=== PATIENT | male | born 1995 | race Caucasian/White ===

== ENCOUNTER 2019-05-18 01:55 | Emergency (ER) | payer SELFPAY ==
[2019-05-18 01:59] VITALS: BP 127/81; PULSE 56; RESP 16; TEMP 36.2; O2SAT 99
--- NOTE | 2019-05-18 02:09 | ED.NAVMDI ---
HPI - Nausea/Vomiting/Diarrhea General Chief complaint: Nausea/Vomiting/Diarrhea Stated complaint: n/v Time Seen by Provider: 05/18/19 02:09 Source: patient and RN notes reviewed Mode of arrival: ambulatory Limitations: no limitations History of Present Illness HPI Narrative: Pt is a 23 y/o male who presents to the ED with c/o nausea and vomiting starting 3 hours ago. He notes that he had one episode of diarrhea earlier yesterday morning. Pt states that he then developed severe nausea and vomiting 3 hours ago, noting that he has been unable to keep anything down due to his symptoms. He also reports a headache, chills, shakiness, lightheadedness, and intermittent SOB, but denies any cough or sinus congestion. MD elicited complaint: nausea and vomiting Onset (ago): hour(s) (3) Associated symptoms: fever/chills (chills), headaches, shortness of breath and other (shakiness; lightheadedness; diarrhea (resolved)) Related Data Allergies Allergy/AdvReac Type Severity Reaction Status Date / Time No Known Allergies Allergy Unknown Verified 05/18/19 02:29 Review of Systems Review of Systems: All systems reviewed & are unremarkable except as noted in HPI and below Constitutional: Constitutional: Reports chills, Reports headache(s) and Reports other (shakiness) ENT: Denies nasal congestion Respiratory: Respiratory: Denies cough and Reports dyspnea Gastrointestinal: Gastrointestinal: Reports diarrhea (resolved), Reports nausea and Reports vomiting Neurologic: Reports other (lightheadedness) PMFSH Past Medical History Medical History (Updated 05/18/19 @ 05:28 by Nate Flores MD) Healthy adult male Surgical History Surgical History No significant past surgical history Social History Social History Smoking packs per day: 0.5 Smoking cigarettes per day: 10.0 Smoking status: Current every day smoker Exam Narrative: Exam Narrative: Const: General: healthy appearing and no acute distress Nutritional Appearance: well nourished Resp: Effort & Inspection: normal respiratory effort Auscultation: clear to auscultation bilaterally Cardio: Rate: regular rate Rhythm: regular rhythm Heart sounds: no murmurs GI: GI Palp: No abdominal tenderness and Yes Soft to palpation Auscultation: normal bowel sounds Back/Spine/Pelvis: Back: other (Full ROM) Skin: General skin exam: normal color, dry skin and other (warm) Neuro: General: patient oriented x3 (alert) Speech: normal speech Extrem: General: full ROM Psych: Mental Status: mental status grossly normal Affect: normal affect Course Vital Signs Vital signs: Vital Signs Temperature 36.2 C L 05/18/19 01:59 Pulse Rate 56 L 05/18/19 01:59 Respiratory Rate 16 05/18/19 01:59 Blood Pressure 127/81 05/18/19 01:59 Pulse Oximetry 99 05/18/19 01:59 Temperature 36.2 C L 05/18/19 01:59 Pulse Rate 51 L 05/18/19 05:45 Respiratory Rate 14 05/18/19 05:45 Blood Pressure 107/50 L 05/18/19 05:45 Pulse Oximetry 98 05/18/19 05:45 MDM - Nausea/Vomiting/Diarrhea Lab Data Result diagrams: 05/18/19 02:38 05/18/19 02:38 Labs: Lab Results 05/18/19 05/18/19 Range/Units 02:38 02:38 WBC 9.8 (4.5-10.0) K/mm3 RBC 4.84 (4.6-6.20) M/mm3 Hgb 13.5 L (14.0-18.0) g/dL Hct 41.0 L (42.0-52.0) % MCV 84.7 (80-100) fl MCH 27.9 (26-34) pg MCHC 32.9 (32-36) g/dl RDW 12.5 (11.5-14.5) % Plt Count 242 (150-375) k/mm3 MPV 10.9 H (7.4-10.4) fl Immature Gran % (Auto) 0.2 (0-0.5) % Neut % (Auto) 64.2 (45.5-73.1) % Lymph % (Auto) 29.5 (18.3-44.2) % [place] % (Auto) 4.7 (2.6-8.5) % Eos % (Auto) 1.1 (0-4.4) % Baso % (Auto) 0.3 (0.2-1.2) % Lymph # (Auto) 2.90 (0.9-3.2) K/mm3 [place] # (Auto) 0.5 (0.1-0.6) K/mm3 Eos # (Auto) 0.1 (0-0.3) K/mm3 Baso # (Auto) 0.0 (0.
[2019-05-18 02:26] VITALS: BP 125/70; PULSE 47; RESP 20; O2SAT 98
[2019-05-18] MEDS: SODIUM CHLORIDE 0.9% IV 1,000 ML 999 ML IV CONT (02:37)
[2019-05-18] MEDS: ONDANSETRON INJ 4 MG/2 ML VIAL IV PUSH (02:37)
[2019-05-18 02:51] LABS: Basophils Percent Auto 0.3 % (0.2-1.2); Eosinophils Absolute Auto 0.1 K/mm3 (0-0.3); Eosinophils Percent Auto 1.1 % (0-4.4); Hemoglobin 13.5 g/dL (14.0-18.0); Immature Granulocyte Absolute 0.02 K/mm3 (0.00-0.031); Immature Granulocyte Percent A 0.2 % (0-0.5); Lymphocytes Percent Auto 29.5 % (18.3-44.2); Mean Corpuscular HGB Conc 32.9 g/dl (32-36); Mean Corpuscular Hemoglobin 27.9 pg (26-34); Mean Corpuscular Volume 84.7 fl (80-100); Mean Platelet Volume 10.9 fl (7.4-10.4); Monocytes Absolute Auto 0.5 K/mm3 (0.1-0.6); Monocytes Percent Auto 4.7 % (2.6-8.5); Neutrophils Absolute Auto 6.3 K/mm3 (1.3-6.7); Neutrophils Percent Auto 64.2 % (45.5-73.1); Platelet Count Result 242 k/mm3 (150-375); Red Blood Count 4.84 M/mm3 (4.6-6.20); Red Cell Distribution Width 12.5 % (11.5-14.5); White Blood Count 9.8 K/mm3 (4.5-10.0)
[2019-05-18 02:59] LABS: Alanine Aminotransferase 22 U/L (4-50); Albumin Level 4.6 g/dL (3.5-5.1); Alkaline Phosphatase 33 U/L (38-126); Aspartate Amino Transferase 24 U/L (17-59); Bilirubin,Total 0.4 mg/dL (0.2-1.3); Blood Urea Nitrogen 11 mg/dL (9-20); Calcium 9.7 mg/dL (8.4-10.2); Carbon Dioxide 29 mmol/L (22-30); Chloride 101 mmol/L (98-107); Estimated CRCL calculation 148 ml/min; Estimated Glomerular Filt Rate > 60; Glucose 104 mg/dL (75-110); Lipase 41 U/L (23-300); Potassium 4.1 mmol/L (3.4-5.0); Sodium 140 mmol/L (137-145)
[2019-05-18 03:23] VITALS: BP 109/64; PULSE 50; RESP 18; O2SAT 97
[2019-05-18] MEDS: METOCLOPRAMIDE HCL INJ 10 MG/2 ML VIAL IV PUSH (03:25)
[2019-05-18 05:45] VITALS: BP 107/50; PULSE 51; RESP 14; O2SAT 98
== END 2019-05-18 05:47 | disposition home or self-care (01) ==
PROVIDERS: Emergency Provider Emergency Medicine
DX: K52.9 Noninfective gastroenteritis and colitis, unspecified (principal); F17.210 Nicotine dependence, cigarettes, uncomplicated
CPT/HCPCS: 36415; 80053; 83690; 85025; 96361; 96374; 96375; 99284; J2405; J2765; J7030

== ENCOUNTER 2020-08-01 03:28 | Emergency (ER) | payer OTHER, SELFPAY ==
--- NOTE | ~2020-08-01 | CT_ITS ---
EXAMINATION: CT brain wo con DATE: 08/01/2020 05:36 INDICATION: Dizziness. Fall. TECHNIQUE: Computed tomography (CT) of the head was performed without intravenous contrast. The mA wa s adjusted according to patient size. Iterative reconstruction technique was employed. Exam dose: 60 5.33 mGy-cm total exam DLP. COMPARISON: None FINDINGS: No intracranial mass lesion or hemorrhage, midline shift or mass effect. No cerebrovascular accident. Normal sellers-white matter differentiation. Normal ventricular size. No subdural or epidural hematoma. No fracture or bone destruction of the cranial vault. There is some soft tissue thickening of the ethmoid air cell septae but the included paranasal sinuse s and the mastoid air cells are otherwise unremarkable. IMPRESSION: No intracranial abnormality Reviewed, dictated and finalized at [facility] Reviewed, dictated and finalized at [facility]. IMPRESSION: No intracranial abnormality
[2020-08-01 03:33] VITALS: BP 131/75; PULSE 71; RESP 16; TEMP 36.4; O2SAT 100
--- NOTE | 2020-08-01 04:55 | PC.NURSE ---
Pt reports fell down 5 stairs approx. 3 days ago and since then c/o dizziness and rivas's. unable to recall if he hit head or lost consciousness. pt reports 1/2 PPD and marijuana smoker. reports he is bipolar and used to take depakote 500 mg PO bid but has not taken it in approx. 1 month. stopped cold turkey b/c it was making me drowsy . reports dizzy at present. a/ox 4. speech clear. on cell phone during initial triage without difficulty noted. 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
[2020-08-01 04:57] VITALS: BP 128/79; PULSE 62; RESP 14; O2SAT 100
--- NOTE | 2020-08-01 05:40 | ED.HEATRA ---
HPI - Head Injury General Chief complaint: Head Injury Stated complaint: fell down stairs-near syncope, dizzy Time Seen by Provider: 08/01/20 05:00 Source: patient Mode of arrival: ambulatory Limitations: no limitations History of Present Illness HPI Narrative: This is a 25 year old male who presents for evaluation of a possible head injury. He states on Friday he accidentally slipped down 5-6 wooden steps outside of his apartment. He states he is unsure if he hit his head, but he has had headaches and dizziness since his fall. He reports nausea but no vomiting. HE denies neck pain, chest pain, abdominal pain or extremity pain. He has been taken ibuprofen for his headache. Related Data Allergies Allergy/AdvReac Type Severity Reaction Status Date / Time No Known Allergies Allergy Unknown Verified 08/01/20 03:29 Review of Systems Review of Systems: All systems reviewed & are unremarkable except as noted in HPI and below PMFSH Past Medical History Medical History (Updated 08/02/20 @ 00:00 by Jerzy Desai) Healthy adult male Surgical History Surgical History No significant past surgical history Social History Social History Smoking packs per day: 0.5 Smoking cigarettes per day: 10.0 Smoking status: Current every day smoker Exam Const: General: no acute distress and alert Orientation/consciousness: patient oriented x3 HENMT: Head: normocephalic and atraumatic Ears: TM's normal bilaterally Face and sinus: face symmetric Mouth: Yes Normal oral and palatal mucosa present, Yes lip normal, Yes oropharynx normal and Yes moist mucous membranes Throat: posterior oropharynx normal, tonsils normal and uvula midline Eyes: EOM: EOMs intact bilaterally Neck: Neck: normal visual inspection Resp: Effort & Inspection: normal respiratory effort and no retractions Auscultation: clear to auscultation bilaterally Cardio: Rate: regular rate Rhythm: regular rhythm Heart sounds: no murmurs GI: GI Palp: Yes Soft to palpation, No Tenderness to palpation present (GI) and No Guarding due to palpation present (GI) Auscultation: normal bowel sounds Neuro: General: patient oriented x3, moves all extremities, no meningeal signs and no focal motor deficits Cranial nerves: Yes CN's II-XII intact bilaterally and Yes Nystagmus not present Speech: normal speech Psych: Mental Status: mental status grossly normal Affect: normal affect Course Reevaluation(s) Reevaluation #1: PAtient is standing up without assistance to urinate. He has not dizziness. HE states he feels better. I Discussed CT was unremarkable. Date: 08/01/20 Time: 06:57 Vital Signs Vital signs: Vital Signs Temperature 97.5 F L 08/01/20 03:33 Pulse Rate 71 08/01/20 03:33 Respiratory Rate 16 08/01/20 03:33 Blood Pressure 131/75 08/01/20 03:33 Pulse Oximetry 100 08/01/20 03:33 Temperature 97.5 F L 08/01/20 03:33 Pulse Rate 64 08/01/20 07:24 Respiratory Rate 17 08/01/20 07:24 Blood Pressure 119/74 08/01/20 07:24 Pulse Oximetry 99 08/01/20 07:24 MDM - Head Injury Lab Data Attestation: I reviewed the patient's lab results. Result diagrams: 08/01/20 05:52 08/01/20 05:52 Labs: Lab Results 08/01/20 08/01/20 08/01/20 Range/Units 05:52 05:52 05:52 WBC 8.4 (4.5-10.0) K/mm3 RBC 5.08 (4.6-6.20) M/mm3 Hgb 14.9 (14.0-18.0) g/dL Hct 43.3 (42.0-52.0) % MCV 85.2 (80-100) fl MCH 29.3 (26-34) pg MCHC 34.4 (32-36) g/dl RDW 12.7 (11.5-14.5) % Plt Count 270 (150-375) k/mm3 MPV 10.2 (7.4-10.4) fl Immature Gran % (Auto) 0.2 (0-0.5) % Neut % (Auto) 51.3 (45.5-73.1) % Lymph % (Auto) 38.9 (18.3-44.2) % [place] % (Auto) 7.7 (2.6-8.5) % Eos % (Auto) 1.3 (0-4.4) % Baso % (Auto) 0.6 (0.2-1.2) % Lymph # (Auto) 3.28 H (
[2020-08-01] MEDS: LACTATED RINGERS 1,000 ML 999 ML IV CONT (05:54)
[2020-08-01] MEDS: ONDANSETRON INJ 4 MG/2 ML VIAL IV PUSH (05:55)
[2020-08-01 06:08] VITALS: BP 114/73; PULSE 50; RESP 16; O2SAT 99
[2020-08-01 06:13] LABS: Prothrombin Time 13.4 Seconds (11.1-14.7)
[2020-08-01 06:14] LABS: Partial Thromboplastin Time 32.9 SECONDS (22.3-36.8)
[2020-08-01 06:16] LABS: Alanine Aminotransferase 47 U/L (4-50); Albumin Level 4.8 g/dL (3.5-5.1); Alkaline Phosphatase 34 U/L (38-126); Anion Gap 5 mmol/L (8-16); Aspartate Amino Transferase 55 U/L (17-59); Bilirubin,Total 0.6 mg/dL (0.2-1.3); Blood Urea Nitrogen 16 mg/dL (9-20); Calcium 9.4 mg/dL (8.4-10.2); Carbon Dioxide 32 mmol/L (22-30); Chloride 104 mmol/L (98-107); Estimated CRCL calculation 129 ml/min; Estimated Glomerular Filt Rate > 60; Glucose 100 mg/dL (75-110); Sodium 141 mmol/L (137-145)
[2020-08-01 06:19] LABS: Basophils Absolute Auto 0.1 K/mm3 (0.0-0.1); Basophils Percent Auto 0.6 % (0.2-1.2); Eosinophils Absolute Auto 0.1 K/mm3 (0-0.3); Eosinophils Percent Auto 1.3 % (0-4.4); Hematocrit 43.3 % (42.0-52.0); Hemoglobin 14.9 g/dL (14.0-18.0); Immature Granulocyte Absolute 0.02 K/mm3 (0.00-0.031); Immature Granulocyte Percent A 0.2 % (0-0.5); Lymphocytes Absolute Auto 3.28 K/mm3 (0.9-3.2); Lymphocytes Percent Auto 38.9 % (18.3-44.2); Mean Corpuscular HGB Conc 34.4 g/dl (32-36); Mean Corpuscular Hemoglobin 29.3 pg (26-34); Mean Corpuscular Volume 85.2 fl (80-100); Mean Platelet Volume 10.2 fl (7.4-10.4); Monocytes Absolute Auto 0.7 K/mm3 (0.1-0.6); Monocytes Percent Auto 7.7 % (2.6-8.5); Neutrophils Absolute Auto 4.3 K/mm3 (1.3-6.7); Neutrophils Percent Auto 51.3 % (45.5-73.1); Platelet Count Result 270 k/mm3 (150-375); Red Blood Count 5.08 M/mm3 (4.6-6.20); Red Cell Distribution Width 12.7 % (11.5-14.5); White Blood Count 8.4 K/mm3 (4.5-10.0)
[2020-08-01] MEDS: MECLIZINE HCL 25 MG TABLET PO (06:52)
[2020-08-01 06:58] VITALS: BP 104/69; PULSE 60; RESP 16; O2SAT 98
[2020-08-01 07:12] LABS: Add Urine Microscopic? YES; Appearance Urine Clear (Clear); Bilirubin Urine Negative (Negative); Blood Urine Negative (Negative); Color Urine Yellow (Yellow); Glucose Urine UA Negative (Negative); Ketones Urine Negative (Negative); Leukocyte Esterase Ur Negative LEU/UL (Negative); Mucus Urine Rare /lpf; Nitrate Urine Negative (Negative); Protein Urine Negative (Negative); RBC Urine 0-2 /hpf (0-2); Specific Grav Ur 1.027 (1.001-1.035); Squamous Epithelial Cell Urine Rare /hpf (Few); WBC Urine 0-3 /hpf
[2020-08-01 07:24] VITALS: BP 119/74; PULSE 64; RESP 17; O2SAT 99
== END 2020-08-01 07:22 | disposition home or self-care (01) ==
PROVIDERS: Emergency Provider General Practice
DX: S06.0X0A Concussion without loss of consciousness, initial encounter (principal); F17.210 Nicotine dependence, cigarettes, uncomplicated; W10.9XXA Fall (on) (from) unspecified stairs and steps, initial encounter
CPT/HCPCS: 36415; 70450; 80053; 81001; 85025; 85610; 85730; 96361; 96374; 99284; A9270; J2405; J7120

== ENCOUNTER 2020-08-05 11:26 | Emergency (ER) | payer OTHER, SELFPAY ==
--- NOTE | ~2020-08-05 | XR_ITS ---
EXAMINATION: XR wrist LT min 3V DATE: 08/05/2020 11:40 INDICATION: Left wrist pain. TECHNIQUE: 4 views of left wrist were obtained. COMPARISON: Left hand radiographs 12/29/2018 FINDINGS: Bone alignment is normal. No fracture. Joint spaces are well maintained. IMPRESSION: 1. Normal left wrist. Reviewed, dictated and finalized at [facility]. IMPRESSION: 1. Normal left wrist.
[2020-08-05 11:34] VITALS: BP 124/69; PULSE 66; RESP 16; TEMP 36.6; O2SAT 100
[2020-08-05 11:35] VITALS: BP 124/69; PULSE 66; RESP 16; TEMP 36.6; O2SAT 100
--- NOTE | 2020-08-05 11:51 | ED.UPPEXIN ---
HPI - Extremity Injury (Upper) General Chief Complaint: Extremity Injury, Upper Stated Complaint: lt wrist inj,needs work note Time Seen by Provider: 08/05/20 11:45 Source: patient Mode of arrival: ambulatory Limitations: no limitations History of Present Illness HPI narrative: Jerome Beyer is a 25 yo male with a PMH of major depression, currently not taking Depakote, comes to [facility] for evaluation of a less wrist injury after fall at [facility] last night. States he fell backwards with open handed on the floor has not iced the wrist or taken any medication. States that hand is painful to flex or extend has weakness on inner finger strength; no swelling no ecchymosis Related Data Allergies Allergy/AdvReac Type Severity Reaction Status Date / Time No Known Allergies Allergy Unknown Verified 08/01/20 03:29 Review of Systems Review of Systems: Narrative: CONSTITUTIONAL: Denies fever, chills, sweats. EYES: Denies visual changes, redness, discharge. ENT: Denies rhinorrhea, congestion, sore throat, otalgia. CARDIOVASCULAR: Denies chest pain, palpitations, edema. RESPIRATORY: Denies dyspnea, wheezing, cough GASTROINTESTINAL: Denies abdominal pain, nausea, vomiting, diarrhea. GENITOURINARY: Denies dysuria, hematuria, abnormal discharge SKIN: Denies rash or itching. NEUROLOGIC: Denies numbness, or focal weakness. PSYCHIATRIC: Denies anxiety has depression. Has left wrist pain after fall PMFSH Past Medical History Medical History Healthy adult male Major depression Surgical History Surgical History No significant past surgical history Family History Family History Other Bipolar 1 disorder Heart disease Social History Social History (Updated 08/05/20 @ 11:55 by Chrissy Ibrahim CNP) Smoking packs per day: 0.5 Smoking cigarettes per day: 10.0 Smoking status: Current every day smoker Alcohol intake: never Comments At time of signature, I agree with nursing past medical, surgical, social and family history. There is no relevant family history pertinent to the presenting complaint. Exam Narrative: Exam Narrative: GENERAL: This is a well-nourished, well-developed patient, in mild distress. Although patient states pain is 8 out of 10 HEAD: normocephalic, atraumatic. Denies hitting head and fall EYES: Sclera clear/white. Vision is grossly intact. EARS: External ears normal, . Hearing grossly intact. NOSE: External nose normal without nasal discharge, nares without redness, no rhinorrhea. THROAT: Mucous membranes moist, NECK: Neck supple, non-tender CARDIOVASCULAR: Regular rate and rhythm without murmurs, gallops, or rubs. RESPIRATORY: Clear to auscultation. Breath sounds equal bilaterally. No wheezes, rales, or rhonchi. GASTROINTESTINAL: Abdomen soft, SKIN: warm, intact with no suspicious lesions or rash, good texture and turgor. NEURO: awake, alert, and oriented to person, place and time. There were no obvious focal neurologic abnormalities. Steady gait EXTREMITIES: Normal range of motion. Left wrist pain with flexion extension has some weakness on inner finger strength is able to do finger opposition no clear edema present no abrasion no ecchymosis BACK: Nontender without deformity Course Course Emergency Course: Patient comes to [facility] for evaluation of left wrist pain after fall yesterday but was getting, also here for work note from hospital visit last week for closed head trauma X-ray of left wrist shows normal left wrist Given [place] wrap, discussed RICE Vital Signs Vital signs: Vital Signs Temperature 97.9 F 08/05/20 11:34 Pulse Rate 66 08/05/20 11:34 Respiratory Rate 16 08/05/20 11:34 Blood Pressure 124/69 08/05/20 11:34 Pulse Oximetry 100 08/05/20 11:34 Temperature 97.9 F 08/05/20 11:35 P
== END 2020-08-05 12:11 | disposition home or self-care (01) ==
PROVIDERS: Emergency Provider Nurse Practitioner
DX: S69.92XA Unspecified injury of left wrist, hand and finger(s), initial encounter (principal); V00.121A Fall from non-in-line roller-skates, initial encounter
CPT/HCPCS: 73110; 99213; G0463

== ENCOUNTER 2020-09-07 23:46 | Emergency (ER) | payer OTHER, SELFPAY ==
[2020-09-07 23:50] VITALS: BP 124/93; PULSE 78; RESP 18; TEMP 37.3; O2SAT 99
--- NOTE | 2020-09-08 00:55 | ED.DENTAL ---
HPI - Dental/Oral General Chief complaint: Dental/Oral Stated complaint: toothache Time Seen by Provider: 09/08/20 00:24 Source: patient Mode of arrival: ambulatory Limitations: no limitations History of Present Illness HPI Narrative: Patient is a 25-year-old male who presents complaining of right lower dental pain starting approximately an hour ago. Patient reports taking ibuprofen and naproxen prior to arrival without relief. He denies all other complaints at this time. He denies significant medical history. MD Complaint: tooth pain Related Data Allergies Allergy/AdvReac Type Severity Reaction Status Date / Time No Known Allergies Allergy Unknown Verified 09/07/20 23:47 Review of Systems Review of Systems: Narrative: CONSTITUTIONAL: Denies fever, chills, or sweats. EYES: Denies visual changes, redness, or discharge. ENT: Denies rhinorrhea, congestion, sore throat, or otalgia. Reports right lower dental pain CARDIOVASCULAR: Denies chest pain, palpitations, or edema. RESPIRATORY: Denies cough or dyspnea. GASTROINTESTINAL: Denies abdominal pain, nausea, vomiting, or diarrhea. GENITOURINARY: Denies dysuria or hematuria. SKIN: Denies rash or itching. MUSCULOSKELETAL: Denies back pain, joint pain, or myalgia. NEUROLOGIC: Denies headache, numbness, dizziness, or weakness. PSYCHIATRIC: Denies anxiety or depression. PMFSH Past Medical History Medical History Healthy adult male Major depression Surgical History Surgical History No significant past surgical history Family History Family History Other Bipolar 1 disorder Heart disease Social History Social History Smoking packs per day: 0.5 Smoking cigarettes per day: 10.0 Smoking status: Current every day smoker Alcohol intake: never Comments At the time of signature, I have reviewed and agree with nursing past medical, surgical, social, and family history unless otherwise noted. Please see nursing chart for further information. There is no relevant family history pertinent to the presenting complaint. Exam Narrative: Exam Narrative: GENERAL: Well-appearing, well-nourished, and in no acute distress. HEAD: Normocephalic, atraumatic. EYES: EOMI. No redness or drainage. Conjunctiva are normal. ENT: Mucous membranes pink and moist. Multiple dental caries, fractures and missing teeth. CHEST: No respiratory distress. HEART: Regular rate and rhythm. EXTREMITIES: Normal range of motion. No edema. SKIN: Warm, dry, no rash. NEURO: No focal deficits. Alert and oriented x3. Gait steady. PSYCH: Normal affect. No signs of depression or anxiety. Course Vital Signs Vital signs: Vital Signs Temperature 37.3 C 09/07/20 23:50 Pulse Rate 78 09/07/20 23:50 Respiratory Rate 18 09/07/20 23:50 Blood Pressure 124/93 H 09/07/20 23:50 Pulse Oximetry 99 09/07/20 23:50 Temperature 37.3 C 09/07/20 23:50 Pulse Rate 78 09/07/20 23:50 Respiratory Rate 18 09/07/20 23:50 Blood Pressure 124/93 H 09/07/20 23:50 Pulse Oximetry 99 09/07/20 23:50 Reviewed. Patient has been instructed to follow-up with his PCP regarding his blood pressure. MDM - Dental/Oral MDM Narrative Medical decision making narrative: Patient has poor dental hygiene. Multiple dental caries, dental fractures and missing teeth noted. Discussed with patient the need for follow-up dental care. Patient started on antibiotics at this time. Patient instructed to not take any more ibuprofen for the next [address] Pepper who agrees with plan of care. Patient is stable for discharge home with outpatient follow-up as discussed. Differential Diagnosis Differential diagnosis: Likely gingival abscess, dental caries, toothache, dental absces
[2020-09-08] MEDS: HYDROcodone/acetaminophen (*CRX) 5-325 MG TABLET 1 TAB PO (01:21)
[2020-09-08] MEDS: AMOXICILLIN/CLAVULANATE K 875-125 MG TAB 1 TABLET PO (01:21)
== END 2020-09-08 01:25 | disposition home or self-care (01) ==
PROVIDERS: Emergency Provider Nurse Practitioner; PCP Internal Medicine Gastroenterology
DX: K02.9 Dental caries, unspecified (principal); K04.7 Periapical abscess without sinus; F17.210 Nicotine dependence, cigarettes, uncomplicated
CPT/HCPCS: 99283; A9270

== ENCOUNTER 2020-12-09 01:57 | Emergency (ER) | payer OTHER, SELFPAY ==
--- NOTE | ~2020-12-09 | XR_ITS ---
EXAMINATION: XR chest 2V DATE: 12/09/2020 02:18 INDICATION: Left-sided chest pain TECHNIQUE: PA and lateral views of the chest were obtained. COMPARISON: Chest radiograph dated 12/17/2017 FINDINGS: The lungs remain clear with no focal airspace opacities, pulmonary edema, pleural effusion or pneumot horax. The cardiomediastinal silhouette is normal. Bone island projecting over the left humeral head and glenoid. IMPRESSION: 1. No acute cardiopulmonary disease. Reviewed, dictated and finalized at [facility].
[2020-12-09 01:58] VITALS: BP 110/68; PULSE 79; RESP 18; TEMP 36.8; O2SAT 97
--- NOTE | 2020-12-09 02:01 | ECG_ITS ---
Measurements Intervals [place] Rate: 85 P: 67 ND: 181 QRS: 64 QRSD: 98 T: 69 QT: 352 QTc: 420 Interpretive Statements SINUS RHYTHM WITH MARKED SINUS ARRHYTHMIA INCOMPLETE RIGHT BUNDLE BRANCH BLOCK BASELINE ARTIFACT- I, III, AVL, V3 BORDERLINE ECG Electronically Signed On 12-09-2020 7:03:20 CDT by Benny Caruso D.O.
[2020-12-09 02:47] LABS: Basophils Percent Auto 0.3 % (0.2-1.2); Eosinophils Absolute Auto 0.2 K/mm3 (0-0.3); Eosinophils Percent Auto 2.1 % (0-4.4); Hematocrit 40.6 % (42.0-52.0); Hemoglobin 13.9 g/dL (14.0-18.0); Immature Granulocyte Absolute 0.02 K/mm3 (0.00-0.031); Immature Granulocyte Percent A 0.2 % (0-0.5); Lymphocytes Absolute Auto 3.59 K/mm3 (0.9-3.2); Lymphocytes Percent Auto 41.7 % (18.3-44.2); Mean Corpuscular HGB Conc 34.2 g/dl (32-36); Mean Corpuscular Hemoglobin 28.6 pg (26-34); Mean Corpuscular Volume 83.5 fl (80-100); Mean Platelet Volume 10.5 fl (7.4-10.4); Monocytes Absolute Auto 0.5 K/mm3 (0.1-0.6); Monocytes Percent Auto 5.6 % (2.6-8.5); Neutrophils Absolute Auto 4.3 K/mm3 (1.3-6.7); Neutrophils Percent Auto 50.1 % (45.5-73.1); Platelet Count Result 256 k/mm3 (150-375); Red Blood Count 4.86 M/mm3 (4.6-6.20); Red Cell Distribution Width 12.3 % (11.5-14.5); White Blood Count 8.6 K/mm3 (4.5-10.0)
[2020-12-09 02:50] LABS: Anion Gap 8 mmol/L (8-16); Blood Urea Nitrogen 18 mg/dL (9-20); Calcium 9.5 mg/dL (8.4-10.2); Carbon Dioxide 27 mmol/L (22-30); Chloride 103 mmol/L (98-107); Estimated CRCL calculation 112 ml/min; Estimated Glomerular Filt Rate > 60; Glucose 112 mg/dL (65-110); Potassium 3.5 mmol/L (3.4-5.0); Prothrombin Time 12.6 Seconds (11.1-14.7); Sodium 138 mmol/L (137-145)
[2020-12-09 02:51] LABS: Partial Thromboplastin Time 30.8 SECONDS (22.3-36.8)
[2020-12-09 03:03] LABS: Troponin I < 0.012 ng/mL (0.000-0.034)
--- NOTE | 2020-12-09 03:32 | ED.CHESTPAIN ---
HPI - Chest Pain General Chief Complaint: Chest Pain Stated Complaint: chest pain Time Seen by Provider: 12/09/20 03:02 Source: RN notes reviewed History of Present Illness HPI narrative: Patient presents emergency department from work for chest pain. 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 over his left lower chest states the pain was worse with deep inspiration and movement described as aching in nature patient states the pain does improve if he holds his breath he denies any direct trauma or injury denies any fevers or chills shortness of breath abdominal pain nausea vomiting or any other symptoms Related Data Allergies Allergy/AdvReac Type Severity Reaction Status Date / Time No Known Allergies Allergy Unknown Verified 09/07/20 23:47 Review of Systems Review of Systems: Gen.: Denies fevers or chills ENT: Denies congestion Respiratory: Denies shortness of breath or cough CV: See HPI GI: Denies abdominal pain nausea, emesis or diarrhea Musculoskeletal: Denies back pain or muscle pain Neuro: Denies numbness, tingling, weakness or focal weakness Skin: Denies rash Except as documented, all other systems reviewed and negative [facility] Past Medical History Medical History Healthy adult male Major depression Surgical History Surgical History No significant past surgical history Family History Family History Other Bipolar 1 disorder Heart disease Social History Social History Smoking packs per day: 0.5 Smoking cigarettes per day: 10.0 Smoking status: Current every day smoker Alcohol intake: never Exam Narrative: APPEARANCE: No acute distress, nontoxic, resting in bed EYES: EOMI HEENT: Normocephalic, atraumatic, OMM RESPIRATORY: No respiratory distress Clear to auscultation bilaterally with no rhonchi wheezing or rales. CARDIOVASCULAR: Regular rate and rhythm without murmurs rubs or gallops. Chest: Turn palpation of the left lower chest just to the left of the sternum and regions of ribs 6 through 9 pain increased with deep inspiration and rotation of the torso and improved with holding breath ABDOMINAL: Soft, nontender, nondistended, no rebound or guarding MUSCULOSKELETAl: Moves all extremities. No clubbing, cyanosis or edema. NEURO: Awake and alert. Following commands, speech normal, no focal deficits SKIN:: Warm, dry. No rashes lesions or abrasions PSYCHIATRIC: Normal affect/mood, Course Course Emergency Course: Patient states chest pain has resolved following medication Discussed with patient results of workup and diagnosis. Discussed need for follow-up with primary care, proper use of medication, and reasons to return to the emergency department. Patient understands and agrees to current treatment plan Vital Signs Vital signs: Vital Signs Temperature 98.3 F 12/09/20 01:58 Pulse Rate 79 12/09/20 01:58 Respiratory Rate 18 12/09/20 01:58 Blood Pressure 110/68 12/09/20 01:58 Pulse Oximetry 97 12/09/20 01:58 Temperature 98.3 F 12/09/20 01:58 Pulse Rate 76 12/09/20 04:17 Respiratory Rate 18 12/09/20 04:17 Blood Pressure 115/61 12/09/20 04:17 Pulse Oximetry 99 12/09/20 04:17 MDM - Chest Pain MDM Narrative Medical decision making narrative: Patient's EKGs and labs are without significant high risk changes. Cardiac risk factors reviewed. Patient is felt likely low risk for ACS and reasonable for further risk stratification testing as an outpatient. Pain was not sudden or maximal in onset without tearing or ripping quality. No other signs of symptoms suggest aortic dissection. A low-risk Wells criteria is noted, PE is felt to be unlikely. No pneumonia seen on evaluati
[2020-12-09 04:17] VITALS: BP 115/61; PULSE 76; RESP 18; O2SAT 99
[2020-12-09 05:31] LABS: Troponin I < 0.012 ng/mL (0.000-0.034)
[2020-12-09 05:53] VITALS: BP 105/64; PULSE 52; RESP 18; O2SAT 97
== END 2020-12-09 05:57 | disposition home or self-care (01) ==
PROVIDERS: Emergency Provider Emergency Medicine; PCP Internal Medicine Gastroenterology
DX: R07.89 Other chest pain (principal); F17.210 Nicotine dependence, cigarettes, uncomplicated
CPT/HCPCS: 36415; 71046; 80048; 84484; 85025; 85610; 85730; 93005; 99284

== ENCOUNTER 2021-01-05 04:25 | Emergency (ER) | payer OTHER, SELFPAY ==
--- NOTE | ~2021-01-05 | CT_ITS ---
EXAMINATION: CT brain wo con DATE: 01/05/2021 07:08 INDICATION: Headache. TECHNIQUE: Computed tomography (CT) of the head was performed without intravenous contrast. The mA wa s adjusted according to patient size. Iterative reconstruction technique was employed. The dose-lengt h product was 681.00 mGy-cm. COMPARISON: Head CT 08/01/2020 FINDINGS: There is no intracranial hemorrhage, acute infarction, or abnormal intracranial mass lesion . The ventricles are normal in size. There is mild mucosal thickening in the paranasal sinuses. The m astoid air cells are normal. There is cerumen in the external auditory canals. The orbits are normal. IMPRESSION: 1. Normal brain. Reviewed, dictated and finalized at location A. IMPRESSION: 1. Normal brain.
[2021-01-05 04:31] VITALS: BP 186/118; PULSE 49; RESP 20; TEMP 37.2; O2SAT 100
[2021-01-05 04:48] VITALS: BP 170/103; PULSE 49; RESP 18; O2SAT 100
[2021-01-05] MEDS: PROMETHAZINE HCL 25 MG/ML AMPUL 12.5 MG IV PUSH (04:54)
[2021-01-05] MEDS: SODIUM CHLORIDE 0.9% IV 1,000 ML 999 ML IV CONT (04:54)
--- NOTE | 2021-01-05 05:25 | ED.GENADULT ---
HPI - General Adult General Chief complaint: Nausea/Vomiting/Diarrhea Stated complaint: vomiting and dizziness since 0300 Time Seen by Provider: 01/05/21 04:28 History of Present Illness HPI narrative: Patient is a 25-year-old male who presents ER with nausea and vomiting. Sudden onset after taking a couple hits from a blunt. Reports she smokes marijuana with regularity but this was different and he is unsure if there is something else in the marijuana. It is not something he usually smokes and took a hit off of drugs that belonged to a friend. He has had several episodes of emesis. Received Zofran by EMS. Currently very anxious. Has history of amphetamine abuse. Patient having frontal headache related to this. Related Data Allergies Allergy/AdvReac Type Severity Reaction Status Date / Time No Known Allergies Allergy Unknown Verified 01/05/21 04:34 Review of Systems Review of Systems: All systems reviewed & are unremarkable except as noted in HPI and below Constitutional: Constitutional: Denies chills, Denies fever(s) and Denies weakness ENT: Denies nasal congestion and Denies sore throat Gastrointestinal: Gastrointestinal: Reports nausea and Reports vomiting Neurologic: Reports headache(s), Denies focal weakness and Denies numbness PMFSH Past Medical History Medical History Healthy adult male Major depression Surgical History Surgical History No significant past surgical history Family History Family History Other Bipolar 1 disorder Heart disease Social History Social History Smoking packs per day: 0.5 Smoking cigarettes per day: 10.0 Smoking status: Current every day smoker Alcohol intake: never Exam Narrative: GENERAL: Well-appearing, well-nourished, and mildly anxious. HEAD: Normocephalic, atraumatic. EYES: PERRL and EOMI. ENT: Mucous membranes moist. CHEST: Clear to auscultation. No respiratory distress. HEART: Regular rate and rhythm. Normal peripheral pulses. ABDOMEN: Soft, nontender, nondistended. EXTREMITIES: Normal range of motion. No edema. SKIN: Warm, dry, no rash. NEURO: Alert and oriented x3. Course Course Emergency Course: Patient informed of results. Still reporting some frontal headache. Toradol for EASON, CT negative. D/c. Vital Signs Vital signs: Vital Signs Temperature 98.9 F 01/05/21 04:31 Pulse Rate 49 L 01/05/21 04:31 Respiratory Rate 20 01/05/21 04:31 Blood Pressure 186/118 H 01/05/21 04:31 Pulse Oximetry 100 01/05/21 04:31 Temperature 98.9 F 01/05/21 04:31 Pulse Rate 49 L 01/05/21 04:48 Respiratory Rate 18 01/05/21 04:48 Blood Pressure 170/103 H 01/05/21 04:48 Pulse Oximetry 100 01/05/21 04:48 Medical Decision Making Vital Signs Vital Signs: Vital Signs Temperature 98.9 F 01/05/21 04:31 Pulse Rate 49 L 01/05/21 04:31 Respiratory Rate 20 01/05/21 04:31 Blood Pressure 186/118 H 01/05/21 04:31 Pulse Oximetry 100 01/05/21 04:31 Temperature 98.9 F 01/05/21 04:31 Pulse Rate 49 L 01/05/21 04:48 Respiratory Rate 18 01/05/21 04:48 Blood Pressure 170/103 H 01/05/21 04:48 Pulse Oximetry 100 01/05/21 04:48 Lab Data Result diagrams: 01/05/21 05:33 01/05/21 05:33 Labs: Lab Results 01/05/21 01/05/21 01/05/21 Range/Units 05:27 05:33 05:33 WBC 14.2 H (4.5-10.0) K/mm3 RBC 5.17 (4.6-6.20) M/mm3 Hgb 15.0 (14.0-18.0) g/dL Hct 42.1 (42.0-52.0) % MCV 81.4 (80-100) fl MCH 29.0 (26-34) pg MCHC 35.6 (32-36) g/dl RDW 12.1 (11.5-14.5) % Plt Count 270 (150-375) k/mm3 MPV 10.1 (7.4-10.4) fl Immature Gran % (Auto) 0.3 (0-0.5) % Neut % (Auto) 77.7 H (45.5-73.1) % Lymph % (Auto) 16.6 L
[2021-01-05 05:40] LABS: Basophils Absolute Auto 0.1 K/mm3 (0.0-0.1); Basophils Percent Auto 0.4 % (0.2-1.2); Eosinophils Absolute Auto 0.1 K/mm3 (0-0.3); Eosinophils Percent Auto 0.7 % (0-4.4); Hematocrit 42.1 % (42.0-52.0); Immature Granulocyte Absolute 0.04 K/mm3 (0.00-0.031); Immature Granulocyte Percent A 0.3 % (0-0.5); Lymphocytes Absolute Auto 2.35 K/mm3 (0.9-3.2); Lymphocytes Percent Auto 16.6 % (18.3-44.2); Mean Corpuscular HGB Conc 35.6 g/dl (32-36); Mean Corpuscular Volume 81.4 fl (80-100); Mean Platelet Volume 10.1 fl (7.4-10.4); Monocytes Absolute Auto 0.6 K/mm3 (0.1-0.6); Monocytes Percent Auto 4.3 % (2.6-8.5); Neutrophils Percent Auto 77.7 % (45.5-73.1); Platelet Count Result 270 k/mm3 (150-375); Red Blood Count 5.17 M/mm3 (4.6-6.20); Red Cell Distribution Width 12.1 % (11.5-14.5); White Blood Count 14.2 K/mm3 (4.5-10.0)
[2021-01-05 05:51] LABS: Alanine Aminotransferase 28 U/L (4-50); Alkaline Phosphatase 36 U/L (38-126); Anion Gap 11 mmol/L (8-16); Aspartate Amino Transferase 35 U/L (17-59); Bilirubin,Total 0.4 mg/dL (0.2-1.3); Blood Urea Nitrogen 15 mg/dL (9-20); Carbon Dioxide 26 mmol/L (22-30); Chloride 103 mmol/L (98-107); Estimated CRCL calculation 129 ml/min; Estimated Glomerular Filt Rate > 60; Glucose 122 mg/dL (65-110); Potassium 3.6 mmol/L (3.4-5.0); Sodium 140 mmol/L (137-145)
[2021-01-05 05:53] LABS: Amphetamine Screen Urine Positive (Negative); Barbiturate Screen Urine Negative (Negative); Benzodiazepines Screen Urine Negative (Negative); Cannabinoid Screen Urine Positive (Negative); Cocaine Screen Urine Negative (Negative); Methadone Screen Urine Negative (Negative); Opiate Screen Urine Negative (Negative); Phencyclidine Screen Urine Negative (Negative)
[2021-01-05] MEDS: KETOROLAC 30 MG/ML VIAL (*BKC) IV PUSH (07:22)
[2021-01-05 07:36] VITALS: BP 168/109; PULSE 75; RESP 12; O2SAT 100
== END 2021-01-05 07:43 | disposition home or self-care (01) ==
PROVIDERS: Emergency Provider Emergency Medicine; PCP Internal Medicine Gastroenterology
DX: R11.2 Nausea with vomiting, unspecified (principal); R51.9 Headache, unspecified; F12.90 Cannabis use, unspecified, uncomplicated; F15.10 Other stimulant abuse, uncomplicated; F17.210 Nicotine dependence, cigarettes, uncomplicated
CPT/HCPCS: 36415; 70450; 80053; 80307; 85025; 96361; 96374; 96375; 99284; J1885; J2550; J7030

== ENCOUNTER 2021-02-14 10:48 | Emergency (ER) | payer OTHER, SELFPAY ==
[2021-02-14 10:58] VITALS: BP 133/70; PULSE 88; RESP 16; TEMP 36.8; O2SAT 100
--- NOTE | 2021-02-14 11:14 | ED.SKABFB ---
HPI - Skin/Abscess/Foreign Bdy General Chief complaint: Skin/Abscess/Foreign Body Stated complaint: RASH Time Seen by Provider: 02/14/21 11:00 Source: patient and RN notes reviewed Mode of arrival: ambulatory Limitations: no limitations History of Present Illness HPI narrative: Patient presents today with a 1.5 to 2-month history rash to his gluteal cleft, perirectally. States the area itches and norton, and tends to spread when he sweats a lot. He has been using hydrocortisone and A&D ointment without relief. MD complaint: rash Related Data Allergies Allergy/AdvReac Type Severity Reaction Status Date / Time No Known Allergies Allergy Unknown Verified 01/05/21 04:34 Review of Systems Review of Systems: CONSTITUTIONAL: Denies body aches, fever, chills, or sweats. EYES: Denies visual changes, redness, or discharge. ENT: Denies rhinorrhea, congestion, sore throat, or otalgia. CARDIOVASCULAR: Denies chest pain, palpitations, or edema. RESPIRATORY: Denies cough or dyspnea. GASTROINTESTINAL: Denies abdominal pain, nausea, vomiting, or diarrhea. GENITOURINARY: Denies dysuria or hematuria. SKIN: Denies wounds.+ Rash MUSCULOSKELETAL: Denies back pain, joint pain, or myalgia. NEUROLOGIC: Denies headache, numbness, tingling, or weakness. PSYCH: Denies depression or anxiety. [facility] Past Medical History Medical History Healthy adult male Major depression Surgical History Surgical History No significant past surgical history Family History Family History Other Bipolar 1 disorder Heart disease Social History Social History Smoking packs per day: 0.5 Smoking cigarettes per day: 10.0 Smoking status: Current every day smoker Alcohol intake: never Comments At time of signature, I have reviewed and agree with nursing past medical, surgical, social and family history unless otherwise noted. Please see nursing chart for further information. There is no relevant family history pertinent to the presenting complaint Exam Narrative: GENERAL: Well-appearing, well-nourished, and in no acute distress. HEAD: Normocephalic, atraumatic. EYES: EOMI. No redness or drainage. Conjunctivae normal. ENT: Mucous membranes pink and moist. NECK: Normal AROM. CHEST: No respiratory distress.. EXTREMITIES: Normal range of motion. No edema. SKIN: Warm, dry. Capillary refill normal. Normal skin turgor. Erythematous macular papular rash to most of the gluteal cleft. NEURO: No focal deficits. Alert and oriented x3. Gait steady. PSYCH: Normal affect. No signs of depression or anxiety. Course Vital Signs Vital signs: Vital Signs Temperature 98.2 F 02/14/21 10:58 Pulse Rate 88 02/14/21 10:58 Respiratory Rate 16 02/14/21 10:58 Blood Pressure 133/70 02/14/21 10:58 Pulse Oximetry 100 02/14/21 10:58 Temperature 98.2 F 02/14/21 10:58 Pulse Rate 88 02/14/21 10:58 Respiratory Rate 16 02/14/21 10:58 Blood Pressure 133/70 02/14/21 10:58 Pulse Oximetry 100 02/14/21 10:58 Reviewed. Pt has been instructed to follow up with his PCP regarding his elevated blood pressure today. MDM - Skin/Abscess/Foreign Bdy Differential Diagnosis Differential diagnosis: Likely viral exanthem, dermatophytosis, cellulitis, eczema, impetigo and contact dermatitis Critical Care Time Critical Care Time Critical Care Time: No Discharge Plan Discharge Clinical Impression: Tinea cruris Patient Disposition: Home, Self-Care Condition: Stable Instructions: Edward Thibodeaux (ED) Additional Instructions: You have a fungal infection on your skin. Please use clotrimazole cream twice daily for at least 2 weeks. Follow-up with your doctor in 2 to 3 weeks if symptoms are not improving.
== END 2021-02-14 11:30 | disposition home or self-care (01) ==
PROVIDERS: Emergency Provider Nurse Practitioner; PCP Internal Medicine Gastroenterology
DX: B35.6 Tinea cruris (principal); F17.210 Nicotine dependence, cigarettes, uncomplicated
CPT/HCPCS: 99211; G0463

== ENCOUNTER 2021-02-20 08:00 | Emergency (ER) | payer OTHER, SELFPAY ==
[2021-02-20] VITALS (21 sets, daily range): BP systolic 116–137; BP diastolic 70–94; PULSE 66–95; RESP 14–18; TEMP 34.9–36.8; O2SAT 97–100
--- NOTE | ~2021-02-20 | CT_ITS ---
EXAMINATION: CT abdomen pelvis w con DATE: 02/20/2021 10:19 INDICATION: Lower abdominal pain TECHNIQUE: Computed tomography (CT) of the abdomen and pelvis was performed with 100 cc Omnipaque 350 intravenous contrast. The dose-length product was 443.41 mGy-cm. Automated exposure control and iter ative reconstruction technique were employed. COMPARISON: CT dated 01/17/2019. FINDINGS: Lung bases are normal. Heart size normal. No significant pleural or pericardial effusion.No significant vascular abnormality. No lymphadenopathy. The liver, spleen, pancreas, adrenal glands an d kidneys are unremarkable. No hydronephrosis. Nonobstructive bowel gas pattern. Colonic diverticulos is without evidence for diverticulitis. No free air or free fluid. Wedge-shaped appearance to T12 is unchanged. Mild degenerative disc disease at T12-L1. IMPRESSION: 1. No acute abdominal abnormality. Reviewed, dictated and finalized at location A. GATION TECHNICIAN
[2021-02-20] MEDS: LACTATED RINGERS 1,000 ML 999 ML IV CONT ×2 (08:46→09:57)
[2021-02-20] MEDS: ONDANSETRON INJ 4 MG/2 ML VIAL IV PUSH (08:46)
[2021-02-20 09:05] LABS: Add Urine Microscopic? YES; Appearance Urine Cloudy (Clear); Bacteria Urine Trace /hpf; Bilirubin Urine Negative (Negative); Blood Urine Negative (Negative); Color Urine Amber (Yellow); Glucose Urine UA Negative (Negative); Ketones Urine Negative (Negative); Leukocyte Esterase Ur Negative LEU/UL (Negative); Mucus Urine Heavy /lpf; Nitrate Urine Negative (Negative); Protein Urine 1+ mg/dL (Negative); Urobilinogen Urine Negative mg/dL (<2.0); WBC Urine 0-3 /hpf
[2021-02-20 09:13] LABS: Basophils Percent Auto 0.2 % (0.2-1.2); Eosinophils Absolute Auto 0.3 K/mm3 (0-0.3); Eosinophils Percent Auto 1.3 % (0-4.4); Hematocrit 45.2 % (42.0-52.0); Hemoglobin 15.6 g/dL (14.0-18.0); Immature Granulocyte Absolute 0.07 K/mm3 (0.00-0.031); Immature Granulocyte Percent A 0.4 % (0-0.5); Lymphocytes Absolute Auto 1.62 K/mm3 (0.9-3.2); Lymphocytes Percent Auto 8.6 % (18.3-44.2); Mean Corpuscular HGB Conc 34.5 g/dl (32-36); Mean Platelet Volume 11.3 fl (7.4-10.4); Monocytes Absolute Auto 1.3 K/mm3 (0.1-0.6); Neutrophils Absolute Auto 15.5 K/mm3 (1.3-6.7); Neutrophils Percent Auto 82.5 % (45.5-73.1); Platelet Count Result 262 k/mm3 (150-375); Red Blood Count 5.38 M/mm3 (4.6-6.20); Red Cell Distribution Width 12.6 % (11.5-14.5); White Blood Count 18.8 K/mm3 (4.5-10.0)
[2021-02-20 09:14] LABS: Alanine Aminotransferase 77 U/L (4-50); Albumin Level 5.3 g/dL (3.5-5.1); Alkaline Phosphatase 32 U/L (38-126); Anion Gap 9 mmol/L (8-16); Aspartate Amino Transferase 55 U/L (17-59); Bilirubin,Total 0.6 mg/dL (0.2-1.3); Blood Urea Nitrogen 9 mg/dL (9-20); Calcium 10.1 mg/dL (8.4-10.2); Carbon Dioxide 32 mmol/L (22-30); Chloride 101 mmol/L (98-107); Estimated CRCL calculation 129 ml/min; Estimated Glomerular Filt Rate > 60; Glucose 108 mg/dL (65-110); Lipase 50 U/L (23-300); Potassium 4.1 mmol/L (3.4-5.0); Sodium 142 mmol/L (137-145)
[2021-02-20 09:58] LABS: Specific Grav Ur 1.031 (1.001-1.035)
--- NOTE | 2021-02-20 10:01 | ED.NAVMDI ---
HPI - Nausea/Vomiting/Diarrhea General Chief complaint: Nausea/Vomiting/Diarrhea Stated complaint: vomiting and diarrhea Time Seen by Provider: 02/20/21 08:11 Source: patient and RN notes reviewed Mode of arrival: ambulatory Limitations: no limitations History of Present Illness HPI Narrative: This is a healthy 25 year old male who presents for evaluation of nausea, vomiting, diarrhea. Patient states last night around 930 pm he ate some cheese filled pretzel and he developed nausea and vomiting shortly afterwards. HE has had multiple episodes of nausea and vomiting last night and this morning. He was sent home from work at 3 am due to his symptoms. On return home this morning, he developed multiple episodes of watery, nonbloody diarrhea. He has been trying to drink water but he is unable to keep anything down, so he is feeling dehydrated. He reports lightheadedness and dizziness. He also reports intermittent diffuse abdominal pain. He denies fever or chills. Related Data Allergies Allergy/AdvReac Type Severity Reaction Status Date / Time No Known Allergies Allergy Unknown Verified 02/20/21 08:16 Review of Systems Review of Systems: All systems reviewed & are unremarkable except as noted in HPI and below PMFSH Past Medical History Medical History Healthy adult male Major depression Surgical History Surgical History No significant past surgical history Family History Family History Other Bipolar 1 disorder Heart disease Social History Social History (Updated 02/20/21 @ 10:04 by Gloria Fuentes MD) Smoking packs per day: 0.5 Smoking cigarettes per day: 10.0 Smoking status: Former smoker Alcohol intake: never Exam Const: General: no acute distress and alert Orientation/consciousness: patient oriented x3 HENMT: Head: normocephalic and atraumatic Face and sinus: face symmetric Mouth: Yes Normal oral and palatal mucosa present, Yes lip normal, Yes oropharynx normal and Yes moist mucous membranes Eyes: EOM: EOMs intact bilaterally Resp: Effort & Inspection: normal respiratory effort and no retractions Auscultation: clear to auscultation bilaterally Cardio: Rate: regular rate Rhythm: regular rhythm Heart sounds: no murmurs GI: GI Palp: Yes Soft to palpation, Yes Tenderness to palpation present (GI) and No Guarding due to palpation present (GI) Auscultation: normal bowel sounds Skin: General skin exam: normal color Rashes: no rashes Neuro: General: patient oriented x3, moves all extremities and CN's II-XI intact bilaterally Psych: Mental Status: mental status grossly normal Affect: normal affect Course Reevaluation(s) Reevaluation #1: Patient reports he feels better. He is able to tolerate PO. I Discussed evaluation. He denies any questions or concerns. Date: 02/20/21 Time: 12:39 Vital Signs Vital signs: Vital Signs Temperature 98.2 F 02/20/21 08:09 Pulse Rate 85 02/20/21 08:09 Respiratory Rate 14 02/20/21 08:09 Blood Pressure 137/91 H 02/20/21 08:09 Pulse Oximetry 99 02/20/21 08:09 Temperature 94.8 F L 02/20/21 08:16 Pulse Rate 66 02/20/21 13:05 Respiratory Rate 18 02/20/21 13:05 Blood Pressure 117/72 02/20/21 13:05 Pulse Oximetry 100 02/20/21 13:05 MDM - Nausea/Vomiting/Diarrhea Lab Data Attestation: I reviewed the patient's lab results. Result diagrams: 02/20/21 08:48 02/20/21 08:48 Labs: Lab Results 02/20/21 02/20/21 02/20/21 Range/Units 08:48 08:48 08:48 WBC 18.8 H (4.5-10.0) K/mm3 RBC 5.38 (4.6-6.20) M/mm3 Hgb 15.6 (14.0-18.0) g/dL Hct 45.2 (42.0-52.0) % MCV 84.0 (80-100) fl MCH 29.0 (26-34) pg MCHC 34.5 (32-36) g/dl RDW 12.6 (11.5-14.5) % Plt Count 262 (150-375) k/mm3 MPV
== END 2021-02-20 13:05 | disposition home or self-care (01) ==
PROVIDERS: Emergency Provider General Practice; PCP Internal Medicine Gastroenterology
DX: K52.9 Noninfective gastroenteritis and colitis, unspecified (principal); E86.0 Dehydration; Z87.891 Personal history of nicotine dependence
CPT/HCPCS: 36415; 74177; 80053; 81001; 83690; 85025; 96361; 96374; 99284; J2405; J7120; Q9967

== ENCOUNTER 2021-03-14 19:02 | Emergency (ER) | payer OTHER, SELFPAY ==
--- NOTE | ~2021-03-14 | XR_ITS ---
EXAMINATION: XR hand LT min 3V DATE: 03/14/2021 19:19 INDICATION: Left hand injury and pain. TECHNIQUE: 3 views of left hand were obtained. COMPARISON: Left wrist radiographs 08/05/2020 FINDINGS: Bone alignment is normal. No fracture. Joint spaces are well maintained. IMPRESSION: 1. Normal left hand. Reviewed, dictated and finalized at location A. ONNEL REPRESENTATIVE IMPRESSION: 1. Normal left hand.
[2021-03-14 19:10] VITALS: BP 120/73; PULSE 68; RESP 16; TEMP 37.1; O2SAT 100
--- NOTE | 2021-03-14 19:11 | ED.EXTPRO ---
HPI - Extremity Problem General Chief complaint: Extremity Injury, Upper Stated complaint: L HAND INJURY Time Seen by Provider: 03/14/21 19:18 Source: patient and RN notes reviewed Mode of arrival: ambulatory Limitations: no limitations History of Present Illness HPI Narrative: 25-year-old male presents concern for left hand pain, swelling. Reports earlier today he was sparring when he hit his opponent on the jaw causing the injury. Reports he went to work, mildly brushed the hand on a trash can causing increasing pain. He denies intervention. He denies decreased strength, reports slight tingling in digits 4 and 5, reports not able to fully make a fist due to pain. MD Complaint: extremity pain Related Data Home Medications Medication Instructions Recorded Confirmed No Home Medications 03/14/21 03/14/21 Allergies Allergy/AdvReac Type Severity Reaction Status Date / Time No Known Allergies Allergy Unknown Verified 03/14/21 19:08 Review of Systems Review of Systems: CONSTITUTIONAL: Denies malaise, chills, sweats, or fever. EYES: Denies visual changes, redness, or discharge. ENT: Denies rhinorrhea, congestion, sinus pain, otalgia or sore throat. CARDIOVASCULAR: Denies chest pain, palpitations, or edema. RESPIRATORY: Denies cough or dyspnea. GASTROINTESTINAL: Denies abdominal pain, nausea, vomiting, diarrhea, bloody, or mucous stools. GENITOURINARY: Denies dysuria or hematuria. SKIN: Denies rash or itching. MUSCULOSKELETAL: Denies back pain, joint pain, or myalgia. NEUROLOGIC: Denies numbness, weakness, or headache. PSYCHIATRIC: Denies anxiety or depression. All systems reviewed & are unremarkable except as noted in HPI and below PMFSH Past Medical History Medical History Healthy adult male Major depression Surgical History Surgical History No significant past surgical history Family History Family History Other Bipolar 1 disorder Heart disease Social History Social History (Updated 02/20/21 @ 10:04 by Gloria Fuentes MD) Smoking packs per day: 0.5 Smoking cigarettes per day: 10.0 Smoking status: Former smoker Alcohol intake: never Comments At time of signature, agree with nursing past medical, surgical, social and family history. There is no relevant family history pertinent to the presenting complaint Exam Narrative: GENERAL: Well-appearing, well-nourished, and in no acute distress. HEAD: Normocephalic EYES: PERRLA, conjunctivae clear NECK: Supple. CHEST: Speaks in full sentences. No respiratory distress. HEART: Regular rate and rhythm. Normal and equal peripheral pulses. EXTREMITIES: Left hand and digits of hand have normal strength and sensation. Range of motion limited. No clubbing, cyanosis. Tenderness, ecchymosis and edema noted at the distal metacarpal of the third, fourth, fifth digits. Skin intact. Normal digital cascade with flexion of fingers, median, ulnar and radial nerve intact. Normal sensation of each side of finger. Can perform 'okay' sign, 'cross over finger test of index and middle fingers. No scissoring. Normal thumb opposition. Good capillary refill and radial pulse. Distal capillary refill less than 3 seconds. Patient is right/left hand dominant SKIN: Warn, dry, intact, pink. No rash NEURO: Alert and oriented x3. PSYCH: Normal mood and affect Course Course Emergency Course: Patient is aware of diagnosis, understands and agrees to treatment plan. Anticipatory guidance given. Patient agrees to follow-up as directed and is aware of reasons to seek care at the emergency department. Portions of this record may have been created with voice recognition software Vital Signs Vital signs: Vital Signs Temperature 98.8 F 03/14/21 19:10 Pulse Rate 68 03/14/21 19:10 Respiratory Rate 16 03/14/21 19
== END 2021-03-14 19:36 | disposition home or self-care (01) ==
PROVIDERS: Emergency Provider Nurse Practitioner; PCP Internal Medicine Gastroenterology
DX: S60.222A Contusion of left hand, initial encounter (principal); Z87.891 Personal history of nicotine dependence; W51.XXXA Accidental striking against or bumped into by another person, initial encounter; Y93.71 Activity, boxing
CPT/HCPCS: 73130; 99213; G0463

== ENCOUNTER → 2021-12-11 08:05 | Outpatient (CLI) | payer OTHER, SELFPAY ==
--- NOTE | ~2021-12-11 | US_ITS ---
US abdomen complete DATE: 12/11/2021 08:32 INDICATION: Epigastric abdominal pain TECHNIQUE: Real-time imaging and Doppler analysis COMPARISON: 02/20/2021 CT abdomen pelvis FINDINGS: No hepatic space-occupying mass lesion is detected. Normal hepatopedal portal venous flow d irection. No gallstones or gallbladder wall thickening or pericholecystic fluid collection. The common bile arie t measures 3.4 mm, within normal range. No renal mass lesion or hydronephrosis. Normal caliber of the abdominal aorta. The inferior vena cava is unremarkable. Normal splenic size. IMPRESSION: No significant abnormality Reviewed, dictated and finalized at Location A. Reviewed, dictated and finalized at location D. IMPRESSION: No significant abnormality
== END ==
PROVIDERS: PCP Internal Medicine Gastroenterology; Visit Provider Internal Medicine Gastroenterology
DX: R10.13 Epigastric pain (principal)
CPT/HCPCS: 76700

== ENCOUNTER 2023-03-05 08:39 | Emergency (ER) | payer MEDICAID, SELFPAY ==
--- NOTE | 2023-03-05 08:40 | ED.URI ---
HPI - URI/Sore Throat General Chief Complaint: Upper Respiratory Infection Stated Complaint: Cough/congestion/sweats Time Seen by Provider: 03/05/23 08:39 Source: patient Mode of arrival: ambulatory Limitations: no limitations History of Present Illness HPI Narrative: Antoine is a 26-year-old male patient presenting to the clinic today with complaints of cough, congestion, mild shortness of breath, sore throat, headache, and sweats x1.5 week. He reports no known fever or chills. Reports he is having productive cough with green phlegm. States he coughs so hard is hard for him to catch his breath. MD elicited complaint: cough and nasal congestion Related Data Home Medications Medication Instructions Recorded Confirmed buspirone 10 mg tablet 10 mg PO BID 03/05/23 03/05/23 gabapentin 100 mg capsule 100 mg PO QHS 03/05/23 03/05/23 lamotrigine 25 mg tablet 50 mg PO DAILY 03/05/23 03/05/23 Allergies Allergy/AdvReac Type Severity Reaction Status Date / Time No Known Allergies Allergy Unknown Verified 03/05/23 08:54 Review of Systems Review of Systems: Pertinent positives per HPI. Patient denies any fever, chills, rash, headache, visual changes, dizziness, chest pain, palpitations, nausea, vomiting, diarrhea, constipation, abdominal pain, or any urinary issues. [facility] Past Medical History Medical History Healthy adult male Major depression Surgical History Surgical History No significant past surgical history Family History Family History Other Bipolar 1 disorder Heart disease Social History Social History Smoking packs per day: 0.5 Smoking cigarettes per day: 10.0 Smoking status: Former smoker Alcohol intake: never Comments At the time of my signature, I reviewed and agree with the nursing past medical, surgical, social, and family history. There is no relevant family history pertinent to the patient complaint. Exam Narrative: General: Well-developed, well nourished, in no apparent distress Head: Normocephalic, atraumatic Eyes: Pupils equally round and reactive to light bilaterally, EOM intact, sclera and conjunctive clear, no discharge, lids normal Ears: TMs intact and clear, ear canals clear, no drainage, grossly hearing normal. Nose: Nares patent, no discharge, no inflammation, no sinus tenderness. Mouth: Oral pharynx without lesions or masses, good dentition, MMM. Neck: Supple, trachea midline, no enlargement of anterior or posterior cervical nodes, no thyroid masses or goiter palpable. Cardio: Regular rate and rhythm, s1 and s2 normal, no murmur appreciated. Resp: Clear to auscultation bilaterally, no rhonchi, rales, wheezing or rubs Course Course Emergency Course: Portions of this record may have been created with voice recognition software. Level of Care: Express Care Visit Vital Signs Vital signs: Vital signs reviewed MDM - URI/Sore Throat MDM Narrative Medical decision making narrative: At the time of visit patient is resting comfortably on the exam table. Patient is nontoxic appearing. I suspect patient has acute bronchitis. Prescription for azithromycin, prednisone, and albuterol inhaler was sent to the pharmacy. Supportive measures were discussed with the patient he voiced understanding discharge instructions and agrees to treatment plan. Return precautions were reviewed. Differential Diagnosis Differential diagnosis: Likely upper respiratory infection, otitis media, sinusitis, viral infection, bronchitis, influenza, pharyngitis and other (COVID) Discharge Plan Discharge Clinical Impression: Bronchitis Patient Disposition: Home, Self-Care Condition: Stable Instructions: Antibiotic Form, Acute Bronchitis (ED) Ad
[2023-03-05 08:46] VITALS: BP 138/73; PULSE 78; RESP 16; TEMP 36.6; O2SAT 98
== END 2023-03-05 09:00 | disposition home or self-care (01) ==
LOC: EXPBETH 08:43
PROVIDERS: Emergency Provider Nurse Practitioner Family; PCP Internal Medicine Gastroenterology
DX: J40 Bronchitis, not specified as acute or chronic (principal); Z79.899 Other long term (current) drug therapy; Z87.891 Personal history of nicotine dependence
CPT/HCPCS: 99213; G0463

== ENCOUNTER 2023-05-08 18:56 | Emergency (ER) | payer OTHER, SELFPAY ==
--- NOTE | ~2023-05-08 | XR_ITS ---
EXAMINATION: XR finger 3rd LT min 2V DATE: 05/08/2023 19:47 INDICATION: Left hand third digit laceration. TECHNIQUE: 3 views of left hand third digit were obtained. COMPARISON: Left hand radiographs 03/14/2021 FINDINGS: Bone alignment is normal. No fracture. Joint spaces are normal. IMPRESSION: 1. No fracture or radiopaque foreign body. Reviewed, dictated and finalized at location [facility]
[2023-05-08 19:00] VITALS: BP 145/80; PULSE 94; RESP 20; TEMP 37.2; O2SAT 100
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
== END 2023-05-08 20:48 | disposition home or self-care (01) ==
PROVIDERS: Emergency Provider Physician Assistant; PCP Internal Medicine Gastroenterology
DX: S61.213A Laceration without foreign body of left middle finger without damage to nail, initial encounter (principal); F32.9 Major depressive disorder, single episode, unspecified; Z87.891 Personal history of nicotine dependence; W26.9XXA Contact with unspecified sharp object(s), initial encounter
CPT/HCPCS: 12001; 73140; 99283

== ENCOUNTER 2023-06-24 13:06 | Emergency (ER) | payer OTHER, SELFPAY ==
--- NOTE | ~2023-06-24 | XR_ITS ---
Lumbosacral Spine: AP and lateral views Clinical History: Pain Findings: The normal lordotic curve is maintained. The vertebral bodies and posterior elements are i ntact. The intervertebral disc spaces are preserved. The sacroiliac joints are normally outlined. Impression: No significant abnormality. Reviewed, dictated and finalized at [facility]. Impression: No significant abnormality.
[2023-06-24 13:13] VITALS: BP 123/75; PULSE 88; RESP 16; TEMP 36.8; O2SAT 99
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
[2023-06-24] MEDS: KETOROLAC (*BKC) 60 MG/2 ML VIAL IM (14:10)
== END 2023-06-24 14:28 | disposition home or self-care (01) ==
PROVIDERS: Emergency Provider Nurse Practitioner
DX: S39.012A Strain of muscle, fascia and tendon of lower back, initial encounter (principal); M54.16 Radiculopathy, lumbar region; Z79.899 Other long term (current) drug therapy; Z87.891 Personal history of nicotine dependence; X50.9XXA Other and unspecified overexertion or strenuous movements or postures, initial encounter
CPT/HCPCS: 72100; 96372; 99213; G0463; J1885

== ENCOUNTER 2023-11-30 08:03 | Emergency (ER) | payer OTHER, SELFPAY ==
--- NOTE | ~2023-11-30 | XR_ITS ---
EXAMINATION: XR knee LT 3V DATE: 11/30/2023 08:25 INDICATION: Generalized left knee pain and swelling TECHNIQUE: Anteroposterior, 2 oblique and crosstable lateral views of the left knee were obtained COMPARISON: None. FINDINGS: Oblique sagittally oriented fracture at the lateral tibial plateau with slight depression of a portio n of the articular surface with 1.5-2 mm step-off best appreciated on one of the oblique projections. No other fractures identified. Joint spaces appear otherwise normal on nonweightbearing imaging. Sma ll left knee joint effusion. IMPRESSION: 1. Minimally depressed intra-articular lateral tibial plateau fracture. Reviewed, dictated and finalized at location [facility].
[2023-11-30 08:15] VITALS: BP 129/78; PULSE 101; RESP 18; TEMP 37.6; O2SAT 97
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
== END 2023-11-30 09:11 | disposition home or self-care (01) ==
PROVIDERS: Emergency Provider Nurse Practitioner; PCP Internal Medicine Gastroenterology
DX: S82.142A Displaced bicondylar fracture of left tibia, initial encounter for closed fracture (principal); V28.49XA Other motorcycle driver injured in noncollision transport accident in traffic accident, initial encounter; Z87.891 Personal history of nicotine dependence; F31.9 Bipolar disorder, unspecified
CPT/HCPCS: 73562; 99214; G0463; L1830

== ENCOUNTER 2025-01-09 18:36 | Emergency (ER) | payer OTHER, SELFPAY ==
--- OUTSIDE RECORDS SUMMARY | 2025-01-09 18:38 | XMS_ITS | Clinical Summary ---
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 Directives For more information, please contact: [phone] * Full Code (Latest Code Status on File) Date Activated Date Inactivated Comments 02/27/2024 11:04 AM 04/01/2024 1:50 AM Care Teams Commutator Tester Relationship Specialty Start Date End Date Woo Newberry MD [address] [place] [id number] PCP - General Gastroenterology 03/01/24 Unknown, Notinfile 02/27/24 Lily Pritchett, SENIOR CHEMICAL ENGINEER Speech Language Pathologist Speech Therapy 08/03/24
--- OUTSIDE RECORDS SUMMARY | 2025-01-09 18:38 | XMS_ITS | Patient Health Record ---
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 Consider/Continue substance cessation therapy as needed - contact office if desiring medication assisted therapy. Manage co-morbid conditions. Continue monitoring symptoms - report persistent or worsening/concern ing symptoms to the office or go to the ER. For mental health CRISIS, please reach out to [phone] (National Suicide and Crisis Lifeline), 911, go to the emergency department, or contact the [facility] Crisis [facility]/Team. Follow up as scheduled in 2 weeks or sooner if necessary. Follow up with PCP and/or other specialists as advised. NEXT STEP: Consider increasing lamotrigine. Consider increasing aripiprazole. Consider increasing gabapentin. Consider adding propranolol due borderline HTN and history of PTSD/panic. Consider other medication adjustments as needed. 05/18/2024 Bipolar 2 disorder (ICD-10 - F31.81) Duration (acute/chronic), stability (controlled/uncon trolled): Chronic, previously well controlled on medication regimen, improved with recent medication adjustments, still some room for improvement, see HPI Current medications/effic acy: Somewhat, room for improvement Previous medication trials: None Current/previous therapies: Patient and currently in couple's therapy, follow up every 2 weeks Examination as documented - see pertinent aspects of office visit documentation. Pertinent diagnostics: LABS MONITORED BY PCP Differential diagnoses: RECOMMENDATIONS: INCREASE aripiprazole as prescribed/discus sed to assist with mood/stability - educated patient/guardian on adverse effects, risks and benefits, as well as alternative treatments INCREASE lamotrigine as prescribed to assist with mood/stability - educated patient/guardian on adverse effects, risks and benefits, as well as alternative treatments INCREASE sertraline as prescribed to assist with anxiety/depressio n - educated patient/guardian on adverse effects, risks and benefits, as well as alternative treatments Continue other medications as prescribed - educated patient/guardian on adverse effects, risks and benefits, as well as alternative treatments Consume well balanced diet, preferably low in saturated fats (solid at room temperature, such as butter, margarine, Crisco, etc) and low in sodium (<2,000mg per day). Consume plenty of fruits/vegetables , healthy grains/whole grains, unsaturated/healt hy fats (liquid at room temperature, such as olive oil, sunflower seed oil, canola, vegetable, etc.). Exercise regularly - Develop an exercise routine. 30 minutes of moderate exercise (walking at a brisk pace) 5 times per week is recommended. You should work hard enough to cause a sweat but still be able to talk with others while exercising. Exercise improves overall health - improves blood pressure and blood sugar, helps control weight, reduces stress, and improves mood. Practice stress reduction techniques, such as guided imagery, journaling, aromatherapy, acupuncture/acupr essure, deep breathing, etc. Practice healthy sleep hygiene - maintain regular routine, no caffeine after 1PM, no exercise 1-2 hours prior to bedtime, keep bedroom dark and cool, no TV or electronics while in bed. Consider melatonin as needed. Consider cognitive behavioral therapy for insomnia (CBT-I). Consider/Continue therapy. Consider/Continue substance cessation therapy as needed - contact office if desiring medication assisted therapy. Manage co-morbid conditions. Continue monitoring symptoms - report persistent or worsening/concern ing symptoms to the office or go to the ER. For mental health CRISIS, please reach out to [phone] (National Suicide and Crisis Lifeline), 911, go to the emergency department, or contact the [facility]/Team. Follow up as scheduled in 4 weeks or sooner if necessary. Follow up with PCP and/or other specialists as advised. NEXT STEP: Consider increasing lamotrigine. Consider increasing aripiprazole. Consider increasing gabapentin. Consider adding propranolol due borderline HTN and history of PTSD/panic. Consider other medication adjustments as needed. 06/11/2024 Bipolar 2 disorder (ICD-10 - F31.81) Duration (acute/chronic), stability (controlled/uncon trolled): Chronic, improved with recent medication adjustments, still some room for improvement, see HPI Current medications/effic acy: Somewhat, room for improvement Previous medication trials: aripiprazole, lamotrigine, sertraline, hydroxyzine, gabapentin, trazodone Current/previous therapies: Patient and currently in couple's therapy, follow up every 2 weeks Examination as documented - see pertinent aspects of office visit documentation. Pertinent diagnostics: LABS MONITORED BY PCP Differential diagnoses: RECOMMENDATIONS: INCREASE sertraline as prescribed to assist with anxiety/depressio n - educated patient/guardian on adverse effects, risks and benefits, as well as alternative treatments Continue other medications as prescribed - educated patient/guardian on adverse effects, risks and benefits, as well as alternative treatments Consume well balanced diet, preferably low in saturated fats (solid at room temperature, such as butter, margarine, Crisco, etc) and low in sodium (<2,000mg per day). Consume plenty of fruits/vegetables , healthy grains/whole grains, unsaturated/healt hy fats (liquid at room temperature, such as olive oil, sunflower seed oil, canola, vegetable, etc.). Exercise regularly - Develop an exercise routine. 30 minutes of moderate exercise (walking at a brisk pace) 5 times per week is recommended. You should work hard enough to cause a sweat but still be able to talk with others while exercising. Exercise improves overall health - improves blood pressure and blood sugar, helps control weight, reduces stress, and improves mood. Practice stress reduction techniques, such as guided imagery, journaling, aromatherapy, acupuncture/acupr essure, deep breathing, etc. Practice healthy sleep hygiene - maintain regular routine, no caffeine after 1PM, no exercise 1-2 hours prior to bedtime, keep bedroom dark and cool, no TV or electronics while in bed. Consider melatonin as needed. Consider cognitive behavioral therapy for insomnia (CBT-I). Consider/Continue therapy. Consider/Continue substance cessation therapy as needed - contact office if desiring medication assisted therapy. Manage co-morbid conditions. Continue monitoring symptoms - report persistent or worsening/concern ing symptoms to the office or go to the ER. For mental health CRISIS, please reach out to [phone] (National Suicide and Crisis Lifeline), 911, go to the emergency department, or contact the [facility]/Team. Follow up as scheduled in 4 weeks or sooner if necessary. Follow up with PCP and/or other specialists as advised. NEXT STEP: Consider increasing lamotrigine. Consider increasing aripiprazole. Consider increasing gabapentin. Consider adding propranolol due borderline HTN and history of PTSD/panic. Consider other medication adjustments as needed. 07/20/2024 Bipolar 2 disorder (ICD-10 - F31.81) Duration (acute/chronic), stability (controlled/uncon trolled): Chronic, improved with recent medication adjustments, slight exacerbation of symptoms after recently missing medications for a day, see HPI Current medications/effic acy: Somewhat, room for improvement Previous medication trials: aripiprazole, lamotrigine, sertraline, hydroxyzine, gabapentin, trazodone Current/previous therapies: Patient and currently in couple's therapy, follow up every 2 weeks Examination as documented - see pertinent aspects of office visit documentation. Pertinent diagnostics: LABS MONITORED BY PCP Differential diagnoses: RECOMMENDATIONS: INCREASE aripiprazole as prescribed to assist with mood/stability - educated patient/guardian on adverse effects, risks and benefits, as well as alternative treatments DECREASE sertraline as prescribed/discus sed to assist with anorgasmia, provider to do reading on midodrine per patient/partner request - educated patient/guardian on adverse effects, risks and benefits, as well as alternative treatments Continue other medications as prescribed - educated patient/guardian on adverse effects, risks and benefits, as well as alternative treatments Consume well balanced diet, preferably low in saturated fats (solid at room temperature, such as butter, margarine, Crisco, etc) and low in sodium (<2,000mg per day). Consume plenty of fruits/vegetables , healthy grains/whole grains, unsaturated/healt hy fats (liquid at room temperature, such as olive oil, sunflower seed oil, canola, vegetable, etc.). Exercise regularly - Develop an exercise routine. 30 minutes of moderate exercise (walking at a brisk pace) 5 times per week is recommended. You should work hard enough to cause a sweat but still be able to talk with others while exercising. Exercise improves overall health - improves blood pressure and blood sugar, helps control weight, reduces stress, and improves mood. Practice stress reduction techniques, such as guided imagery, journaling, aromatherapy, acupuncture/acupr essure, deep breathing, etc. Practice healthy sleep hygiene - maintain regular routine, no caffeine after 1PM, no exercise 1-2 hours prior to bedtime, keep bedroom dark and cool, no TV or electronics while in bed. Consider melatonin as needed. Consider cognitive behavioral therapy for insomnia (CBT-I). Consider/Continue therapy. Consider/Continue substance cessation therapy as needed - contact office if desiring medication assisted therapy. Manage co-morbid conditions. Continue monitoring symptoms - report persistent or worsening/concern ing symptoms to the office or go to the ER. For mental health CRISIS, please reach out to [phone] ([employer] Suicide and Crisis Lifeline), 911, go to the emergency department, or contact the [facility]/Team. Follow up as scheduled in 2 weeks or sooner if necessary. Follow up with PCP and/or other specialists as advised. NEXT STEP: Consider increasing lamotrigine. Consider increasing sertraline. Consider increasing gabapentin. Consider adding propranolol due borderline HTN and history of PTSD/panic. Consider other medication adjustments as needed. 08/05/2024 Bipolar 2 disorder (ICD-10 - F31.81) Duration (acute/chronic), stability (controlled/uncon trolled): Chronic, improved with recent medication adjustments, still some room for improvement, especially regarding anorgasmia, see HPI Current medications/effic acy: Somewhat, room for improvement Previous medication trials: aripiprazole, lamotrigine, sertraline, hydroxyzine, gabapentin, trazodone, buspirone (ineffective) Current/previous therapies: Patient and currently in couple's therapy, follow up every 2 weeks Examination as documented - see pertinent aspects of office visit documentation. Pertinent diagnostics: LABS MONITORED BY PCP Differential diagnoses: RECOMMENDATIONS: DECREASE aripiprazole as prescribed to assist with anorgasmia - educated patient/guardian on adverse effects, risks and benefits, as well as alternative treatments INCREASE lamotrigine as prescribed to assist with mood/stability while decreasing aripiprazole - educated patient/guardian on adverse effects, risks and benefits, as well as alternative treatments Continue other medications as prescribed - educated patient/guardian on adverse effects, risks and benefits, as well as alternative treatments Consume well balanced diet, preferably low in saturated fats (solid at room temperature, such as butter, margarine, Crisco, etc) and low in sodium (<2,000mg per day). Consume plenty of fruits/vegetables , healthy grains/whole grains, unsaturated/healt hy fats (liquid at room temperature, such as olive oil, sunflower seed oil, canola, vegetable, etc.). Exercise regularly - Develop an exercise routine. 30 minutes of moderate exercise (walking at a brisk pace) 5 times per week is recommended. You should work hard enough to cause a sweat but still be able to talk with others while exercising. Exercise improves overall health - improves blood pressure and blood sugar, helps control weight, reduces stress, and improves mood. Practice stress reduction techniques, such as guided imagery, journaling, aromatherapy, acupuncture/acupr essure, deep breathing, etc. Practice healthy sleep hygiene - maintain regular routine, no caffeine after 1PM, no exercise 1-2 hours prior to bedtime, keep bedroom dark and cool, no TV or electronics while in bed. Consider melatonin as needed. Consider cognitive behavioral therapy for insomnia (CBT-I). Consider/Continue therapy. Consider/Continue substance cessation therapy as needed - contact office if desiring medication assisted therapy. Manage co-morbid conditions. Continue monitoring symptoms - report persistent or worsening/concern ing symptoms to the office or go to the ER. For mental health CRISIS, please reach out to [phone] (National Suicide and Crisis Lifeline), 911, go to the emergency department, or contact the [facility]/Team. Follow up as scheduled in 2 weeks or sooner if necessary. Follow up with PCP and/or other specialists as advised. NEXT STEP: Consider increasing lamotrigine. Consider increasing sertraline. Consider increasing gabapentin. Consider adding propranolol due borderline HTN and history of PTSD/panic. Consider other medication adjustments as needed. 08/12/2024 Bipolar 2 disorder (ICD-10 - F31.81) Duration (acute/chronic), stability (controlled/uncon trolled): Chronic, anorgasmia improved with recent medication adjustments, agitation/irritab ility worse, see HPI Current medications/effic acy: Somewhat, room for improvement Previous medication trials: aripiprazole, lamotrigine, sertraline, hydroxyzine, gabapentin, trazodone, buspirone (ineffective) Current/previous therapies: Patient and currently in couple's therapy, follow up every 2 weeks Examination as documented - see pertinent aspects of office visit documentation. Pertinent diagnostics: LABS MONITORED BY PCP Differential diagnoses: RECOMMENDATIONS: START low dose risperidone as prescribed to assist with mood/stability, will continue aripiprazole at this time and switch pending response/tolerabi lity - educated patient/guardian on adverse effects, risks and benefits, as well as alternative treatments Continue other medications as prescribed - educated patient/guardian on adverse effects, risks and benefits, as well as alternative treatments Consume well balanced diet, preferably low in saturated fats (solid at room temperature, such as butter, margarine, Crisco, etc) and low in sodium (<2,000mg per day). Consume plenty of fruits/vegetables , healthy grains/whole grains, unsaturated/healt hy fats (liquid at room temperature, such as olive oil, sunflower seed oil, canola, vegetable, etc.). Exercise regularly - Develop an exercise routine. 30 minutes of moderate exercise (walking at a brisk pace) 5 times per week is recommended. You should work hard enough to cause a sweat but still be able to talk with others while exercising. Exercise improves overall health - improves blood pressure and blood sugar, helps control weight, reduces stress, and improves mood. Practice stress reduction techniques, such as guided imagery, journaling, aromatherapy, acupuncture/acupr essure, deep breathing, etc. Practice healthy sleep hygiene - maintain regular routine, no caffeine after 1PM, no exercise 1-2 hours prior to bedtime, keep bedroom dark and cool, no TV or electronics while in bed. Consider melatonin as needed. Consider cognitive behavioral therapy for insomnia (CBT-I). Consider/Continue therapy. Consider/Continue substance cessation therapy as needed - contact office if desiring medication assisted therapy. Manage co-morbid conditions. Continue monitoring symptoms - report persistent or worsening/concern ing symptoms to the office or go to the ER. For mental health CRISIS, please reach out to [phone] (National Suicide and Crisis Lifeline), 911, go to the emergency department, or contact the [facility]/Team. Follow up as scheduled in 1 week or sooner if necessary. Follow up with PCP and/or other specialists as advised. NEXT STEP: Consider medication adjustments as needed. 10/19/2024 Bipolar 2 disorder (ICD-10 - F31.81) Duration (acute/chronic), stability (controlled/uncon trolled): Chronic, subjectively uncontrolled, see HPI Current medications/effic acy: Somewhat, room for improvement Previous medication trials: aripiprazole, lamotrigine, sertraline, hydroxyzine, gabapentin, trazodone, buspirone (ineffective), risperidone (oversedation), latuda Current/previous therapies: Patient and currently in couple's therapy, follow up every 2 weeks Examination as documented - see pertinent aspects of office visit documentation. Pertinent diagnostics: LABS MONITORED BY PCP Differential diagnoses: RECOMMENDATIONS: STOP lurasidone and INCREASE evening dose of aripiprazole as prescribed/discus sed to assist with mood/stability, continue monitoring anorgasmia - educated patient/guardian on adverse effects, risks and benefits, as well as alternative treatments Continue other medications as prescribed - educated patient/guardian on adverse effects, risks and benefits, as well as alternative treatments Consume well balanced diet, preferably low in saturated fats (solid at room temperature, such as butter, margarine, Crisco, etc) and low in sodium (<2,000mg per day). Consume plenty of fruits/vegetables , healthy grains/whole grains, unsaturated/healt hy fats (liquid at room temperature, such as olive oil, sunflower seed oil, canola, vegetable, etc.). Exercise regularly - Develop an exercise routine. 30 minutes of moderate exercise (walking at a brisk pace) 5 times per week is recommended. You should work hard enough to cause a sweat but still be able to talk with others while exercising. Exercise improves overall health - improves blood pressure and blood sugar, helps control weight, reduces stress, and improves mood. Practice stress reduction techniques, such as guided imagery, journaling, aromatherapy, acupuncture/acupr essure, deep breathing, etc. Practice healthy sleep hygiene - maintain regular routine, no caffeine after 1PM, no exercise 1-2 hours prior to bedtime, keep bedroom dark and cool, no TV or electronics while in bed. Consider melatonin as needed. Consider cognitive behavioral therapy for insomnia (CBT-I). Consider/Continue therapy. Consider/Continue substance cessation therapy as needed - contact office if desiring medication assisted therapy. Manage co-morbid conditions. Continue monitoring symptoms - report persistent or worsening/concern ing symptoms to the office or go to the ER. For mental health CRISIS, please reach out to [phone] (National Suicide and Crisis Lifeline), 911, go to the emergency department, or contact the [facility]/Team. Follow up as scheduled in 1 week or sooner if necessary. Follow up with PCP and/or other specialists as advised. NEXT STEP: Consider medication adjustments as needed. 10/27/2024 Bipolar 2 disorder (ICD-10 - F31.81) Duration (acute/chronic), stability (controlled/uncon trolled): Chronic, subjectively uncontrolled, see HPI Current medications/effic acy: Somewhat, room for improvement Previous medication trials: aripiprazole, lamotrigine, sertraline, hydroxyzine, gabapentin, trazodone, buspirone (ineffective), risperidone (oversedation), latuda Current/previous therapies: Patient and currently in couple's therapy, follow up every 2 weeks Examination as documented - see pertinent aspects of office visit documentation. Pertinent diagnostics: LABS MONITORED BY PCP Differential diagnoses: RECOMMENDATIONS: Continue evening dose of aripiprazole as prescribed/discus sed to assist with mood/stability, continue monitoring anorgasmia - educated patient/guardian on adverse effects, risks and benefits, as well as alternative treatments Continue other medications as prescribed - educated patient/guardian on adverse effects, risks and benefits, as well as alternative treatments Consume well balanced diet, preferably low in saturated fats (solid at room temperature, such as butter, margarine, Crisco, etc) and low in sodium (<2,000mg per day). Consume plenty of fruits/vegetables , healthy grains/whole grains, unsaturated/healt hy fats (liquid at room temperature, such as olive oil, sunflower seed oil, canola, vegetable, etc.). Exercise regularly - Develop an exercise routine. 30 minutes of moderate exercise (walking at a brisk pace) 5 times per week is recommended. You should work hard enough to cause a sweat but still be able to talk with others while exercising. Exercise improves overall health - improves blood pressure and blood sugar, helps control weight, reduces stress, and improves mood. Practice stress reduction techniques, such as guided imagery, journaling, aromatherapy, acupuncture/acupr essure, deep breathing, etc. Practice healthy sleep hygiene - maintain regular routine, no caffeine after 1PM, no exercise 1-2 hours prior to bedtime, keep bedroom dark and cool, no TV or electronics while in bed. Consider melatonin as needed. Consider cognitive behavioral therapy for insomnia (CBT-I). Consider/Continue therapy. Consider/Continue substance cessation therapy as needed - contact office if desiring medication assisted therapy. Manage co-morbid conditions. Continue monitoring symptoms - report persistent or worsening/concern ing symptoms to the office or go to the ER. For mental health CRISIS, please reach out to [phone] ([employer] Suicide and Crisis Lifeline), 911, go to the emergency department, or contact the [facility]/Team. Follow up as scheduled in 1 week or sooner if necessary. Follow up with PCP and/or other specialists as advised. NEXT STEP: Consider medication adjustments as needed. 12/16/2024 Bipolar 2 disorder (ICD-10 - F31.81) 12/22/2024 Bipolar 2 disorder (ICD-10 - F31.81) 12/22/2024 Impulse control disorder (ICD-10 - F63.9) 02/23/2024 Bipolar 2 disorder (ICD-10 - F31.81) 09/08/2024 Bipolar 2 disorder (ICD-10 - F31.81) Duration (acute/chronic), stability (controlled/uncon trolled): Chronic, subjectively uncontrolled, see HPI Current medications/effic acy: Somewhat, room for improvement Previous medication trials: aripiprazole, lamotrigine, sertraline, hydroxyzine, gabapentin, trazodone, buspirone (ineffective), risperidone (oversedation) Current/previous therapies: Patient and currently in couple's therapy, follow up every 2 weeks Examination as documented - see pertinent aspects of office visit documentation. Pertinent diagnostics: LABS MONITORED BY PCP Differential diagnoses: RECOMMENDATIONS: STOP evening dose of aripiprazole and START lurasidone in the evening as prescribed/discus sed to assist with mood/stability, continue monitoring anorgasmia - educated patient/guardian on adverse effects, risks and benefits, as well as alternative treatments DECREASE lamotrigine as prescribed/discus sed to assist with sedation - educated patient/guardian on adverse effects, risks and benefits, as well as alternative treatments Continue other medications as prescribed - educated patient/guardian on adverse effects, risks and benefits, as well as alternative treatments Consume well balanced diet, preferably low in saturated fats (solid at room temperature, such as butter, margarine, Crisco, etc) and low in sodium (<2,000mg per day). Consume plenty of fruits/vegetables , healthy grains/whole grains, unsaturated/healt hy fats (liquid at room temperature, such as olive oil, sunflower seed oil, canola, vegetable, etc.). Exercise regularly - Develop an exercise routine. 30 minutes of moderate exercise (walking at a brisk pace) 5 times per week is recommended. You should work hard enough to cause a sweat but still be able to talk with others while exercising. Exercise improves overall health - improves blood pressure and blood sugar, helps control weight, reduces stress, and improves mood. Practice stress reduction techniques, such as guided imagery, journaling, aromatherapy, acupuncture/acupr essure, deep breathing, etc. Practice healthy sleep hygiene - maintain regular routine, no caffeine after 1PM, no exercise 1-2 hours prior to bedtime, keep bedroom dark and cool, no TV or electronics while in bed. Consider melatonin as needed. Consider cognitive behavioral therapy for insomnia (CBT-I). Consider/Continue therapy. Consider/Continue substance cessation therapy as needed - contact office if desiring medication assisted therapy. Manage co-morbid conditions. Continue monitoring symptoms - report persistent or worsening/concern ing symptoms to the office or go to the ER. For mental health CRISIS, please reach out to [phone] (National Suicide and Crisis Lifeline), 911, go to the emergency department, or contact the [facility] Crisis Unit/Team. Follow up as scheduled in 1 week or sooner if necessary. Follow up with PCP and/or other specialists as advised. NEXT STEP: Consider medication adjustments as needed. 08/25/2024 Bipolar 2 disorder (ICD-10 - F31.81) Duration (acute/chronic), stability (controlled/uncon trolled): Chronic, subjective improvement in mood with recent medication adjustments, anorgasmia worse, see HPI Current medications/effic acy: Somewhat, room for improvement Previous medication trials: aripiprazole, lamotrigine, sertraline, hydroxyzine, gabapentin, trazodone, buspirone (ineffective) Current/previous therapies: Patient and currently in couple's therapy, follow up every 2 weeks Examination as documented - see pertinent aspects of office visit documentation. Pertinent diagnostics: LABS MONITORED BY PCP Differential diagnoses: RECOMMENDATIONS: DECREASE aripiprazole as prescribed/discus sed to assist with anorgasmia - educated patient/guardian on adverse effects, risks and benefits, as well as alternative treatments DECREASE lamotrigine as prescribed/discus sed to assist with sedation - educated patient/guardian on adverse effects, risks and benefits, as well as alternative treatments INCREASE risperidone as prescribed to assist with mood/stability - educated patient/guardian on adverse effects, risks and benefits, as well as alternative treatments Continue other medications as prescribed - educated patient/guardian on adverse effects, risks and benefits, as well as alternative treatments Consume well balanced diet, preferably low in saturated fats (solid at room temperature, such as butter, margarine, Crisco, etc) and low in sodium (<2,000mg per day). Consume plenty of fruits/vegetables , healthy grains/whole grains, unsaturated/healt hy fats (liquid at room temperature, such as olive oil, sunflower seed oil, canola, vegetable, etc.). Exercise regularly - Develop an exercise routine. 30 minutes of moderate exercise (walking at a brisk pace) 5 times per week is recommended. You should work hard enough to cause a sweat but still be able to talk with others while exercising. Exercise improves overall health - improves blood pressure and blood sugar, helps control weight, reduces stress, and improves mood. Practice stress reduction techniques, such as guided imagery, journaling, aromatherapy, acupuncture/acupr essure, deep breathing, etc. Practice healthy sleep hygiene - maintain regular routine, no caffeine after 1PM, no exercise 1-2 hours prior to bedtime, keep bedroom dark and cool, no TV or electronics while in bed. Consider melatonin as needed. Consider cognitive behavioral therapy for insomnia (CBT-I). Consider/Continue therapy. Consider/Continue substance cessation therapy as needed - contact office if desiring medication assisted therapy. Manage co-morbid conditions. Continue monitoring symptoms - report persistent or worsening/concern ing symptoms to the office or go to the ER. For mental health CRISIS, please reach out to [phone] (National Suicide and Crisis Lifeline), 911, go to the emergency department, or contact the [facility] Crisis Unit/Team. Follow up as scheduled in 1 week or sooner if necessary. Follow up with PCP and/or other specialists as advised. NEXT STEP: Consider medication adjustments as needed. 08/18/2024 Bipolar 2 disorder (ICD-10 - F31.81) Duration (acute/chronic), stability (controlled/uncon trolled): Chronic, subjective improvement in mood with recent medication adjustments, anorgasmia possibly worse, see HPI Current medications/effic acy: Somewhat, room for improvement Previous medication trials: aripiprazole, lamotrigine, sertraline, hydroxyzine, gabapentin, trazodone, buspirone (ineffective) Current/previous therapies: Patient and currently in couple's therapy, follow up every 2 weeks Examination as documented - see pertinent aspects of office visit documentation. Pertinent diagnostics: LABS MONITORED BY PCP Differential diagnoses: RECOMMENDATIONS: TAKE aripiprazole as discussed (0.5 tablet in the AM and afternoon) to help with daytime/evening agitation - educated patient/guardian on adverse effects, risks and benefits, as well as alternative treatments DECREASE lamotrigine as prescribed/discus sed to assist with sedation, start by decreasing to 200mg once nightly, can decrease further to 150mg once nightly pending continued stability of mood and heavy sedation - educated patient/guardian on adverse effects, risks and benefits, as well as alternative treatments Continue other medications as prescribed - educated patient/guardian on adverse effects, risks and benefits, as well as alternative treatments Consume well balanced diet, preferably low in saturated fats (solid at room temperature, such as butter, margarine, Crisco, etc) and low in sodium (<2,000mg per day). Consume plenty of fruits/vegetables , healthy grains/whole grains, unsaturated/healt hy fats (liquid at room temperature, such as olive oil, sunflower seed oil, canola, vegetable, etc.). Exercise regularly - Develop an exercise routine. 30 minutes of moderate exercise (walking at a brisk pace) 5 times per week is recommended. You should work hard enough to cause a sweat but still be able to talk with others while exercising. Exercise improves overall health - improves blood pressure and blood sugar, helps control weight, reduces stress, and improves mood. Practice stress reduction techniques, such as guided imagery, journaling, aromatherapy, acupuncture/acupr essure, deep breathing, etc. Practice healthy sleep hygiene - maintain regular routine, no caffeine after 1PM, no exercise 1-2 hours prior to bedtime, keep bedroom dark and cool, no TV or electronics while in bed. Consider melatonin as needed. Consider cognitive behavioral therapy for insomnia (CBT-I). Consider/Continue therapy. Consider/Continue substance cessation therapy as needed - contact office if desiring medication assisted therapy. Manage co-morbid conditions. Continue monitoring symptoms - report persistent or worsening/concern ing symptoms to the office or go to the ER. For mental health CRISIS, please reach out to [phone] ([employer] Suicide and Crisis Lifeline), 911, go to the emergency department, or contact the [facility] Crisis Unit/Team. Follow up as scheduled in 1 week or sooner if necessary. Follow up with PCP and/or other specialists as advised. NEXT STEP: Consider medication adjustments as needed. 07/06/2024 Bipolar 2 disorder (ICD-10 - F31.81) Duration (acute/chronic), stability (controlled/uncon trolled): Chronic, improved with recent medication adjustments, still some oversedation during the daytime hours due to medications, see HPI Current medications/effic acy: Somewhat, room for improvement Previous medication trials: aripiprazole, lamotrigine, sertraline, hydroxyzine, gabapentin, trazodone Current/previous therapies: Patient and currently in couple's therapy, follow up every 2 weeks Examination as documented - see pertinent aspects of office visit documentation. Pertinent diagnostics: LABS MONITORED BY PCP Differential diagnoses: RECOMMENDATIONS: DECREASE gabapentin as prescribed/discus sed due to oversedation - educated patient/guardian on adverse effects, risks and benefits, as well as alternative treatments TAKE sertraline and all lamotrigine in the evening due to oversedation - educated patient/guardian on adverse effects, risks and benefits, as well as alternative treatments Continue other medications as prescribed - educated patient/guardian on adverse effects, risks and benefits, as well as alternative treatments Consume well balanced diet, preferably low in saturated fats (solid at room temperature, such as butter, margarine, Crisco, etc) and low in sodium (<2,000mg per day). Consume plenty of fruits/vegetables , healthy grains/whole grains, unsaturated/healt hy fats (liquid at room temperature, such as olive oil, sunflower seed oil, canola, vegetable, etc.). Exercise regularly - Develop an exercise routine. 30 minutes of moderate exercise (walking at a brisk pace) 5 times per week is recommended. You should work hard enough to cause a sweat but still be able to talk with others while exercising. Exercise improves overall health - improves blood pressure and blood sugar, helps control weight, reduces stress, and improves mood. Practice stress reduction techniques, such as guided imagery, journaling, aromatherapy, acupuncture/acupr essure, deep breathing, etc. Practice healthy sleep hygiene - maintain regular routine, no caffeine after 1PM, no exercise 1-2 hours prior to bedtime, keep bedroom dark and cool, no TV or electronics while in bed. Consider melatonin as needed. Consider cognitive behavioral therapy for insomnia (CBT-I). Consider/Continue therapy. Consider/Continue substance cessation therapy as needed - contact office if desiring medication assisted therapy. Manage co-morbid conditions. Continue monitoring symptoms - report persistent or worsening/concern ing symptoms to the office or go to the ER. For mental health CRISIS, please reach out to [phone] ([employer] Suicide and Crisis Lifeline), 911, go to the emergency department, or contact the [facility] Crisis Unit/Team. Follow up as scheduled in 4 weeks or sooner if necessary. Follow up with PCP and/or other specialists as advised. NEXT STEP: Consider increasing lamotrigine. Consider increasing aripiprazole. Consider increasing gabapentin. Consider adding propranolol due borderline HTN and history of PTSD/panic. Consider other medication adjustments as needed. 06/17/2024 Bipolar 2 disorder (ICD-10 - F31.81) 02/20/2024 Bipolar 2 disorder (ICD-10 - F31.81) Duration (acute/chronic), stability (controlled/uncon trolled): Chronic, well controlled on current medication regimen Current medications/effic acy: Yes Previous medication trials: None Current/previous therapies: Patient and currently in couple's therapy, follow up every 2 weeks Examination as documented - see pertinent aspects of office visit documentation. Pertinent diagnostics: LABS MONITORED BY PCP Differential diagnoses: RECOMMENDATIONS: Continue medications as prescribed - educated patient/guardian on adverse effects, risks and benefits, as well as alternative treatments Consume well balanced diet, preferably low in saturated fats (solid at room temperature, such as butter, margarine, Crisco, etc) and low in sodium (<2,000mg per day). Consume plenty of fruits/vegetables , healthy grains/whole grains, unsaturated/healt hy fats (liquid at room temperature, such as olive oil, sunflower seed oil, canola, vegetable, etc.). Exercise regularly - Develop an exercise routine. 30 minutes of moderate exercise (walking at a brisk pace) 5 times per week is recommended. You should work hard enough to cause a sweat but still be able to talk with others while exercising. Exercise improves overall health - improves blood pressure and blood sugar, helps control weight, reduces stress, and improves mood. Practice stress reduction techniques, such as guided imagery, journaling, aromatherapy, acupuncture/acupr essure, deep breathing, etc. Practice healthy sleep hygiene - maintain regular routine, no caffeine after 1PM, no exercise 1-2 hours prior to bedtime, keep bedroom dark and cool, no TV or electronics while in bed. Consider melatonin as needed. Consider cognitive behavioral therapy for insomnia (CBT-I). Consider/Continue therapy. Consider/Continue substance cessation therapy as needed - contact office if desiring medication assisted therapy. Manage co-morbid conditions. Continue monitoring symptoms - report persistent or worsening/concern ing symptoms to the office or go to the ER. For mental health CRISIS, please reach out to [phone] ([employer] Suicide and Crisis Lifeline), 911, go to the emergency department, or contact the [facility] Crisis Unit/Team. Follow up as scheduled in 4 weeks or sooner if necessary. Follow up with PCP and/or other specialists as advised. NEXT STEP: Consider increasing lamotrigine. Consider increasing gabapentin. Consider adding propranolol due borderline HTN and history of PTSD/panic. Consider other medication adjustments as needed. 01/30/2024 PTSD (post-traumatic stress disorder) (ICD-10 - F43.10) 01/30/2024 Panic disorder (ICD-10 - F41.0) 09/21/2024 Bipolar 2 disorder (ICD-10 - F31.81) Duration (acute/chronic), stability (controlled/uncon trolled): Chronic, subjectively uncontrolled, see HPI Current medications/effic acy: Somewhat, room for improvement Previous medication trials: aripiprazole, lamotrigine, sertraline, hydroxyzine, gabapentin, trazodone, buspirone (ineffective), risperidone (oversedation) Current/previous therapies: Patient and currently in couple's therapy, follow up every 2 weeks Examination as documented - see pertinent aspects of office visit documentation. Pertinent diagnostics: LABS MONITORED BY PCP Differential diagnoses: RECOMMENDATIONS: STOP lurasidone and INCREASE evening dose of aripiprazole as prescribed/discus sed to assist with mood/stability, continue monitoring anorgasmia - educated patient/guardian on adverse effects, risks and benefits, as well as alternative treatments Continue other medications as prescribed - educated patient/guardian on adverse effects, risks and benefits, as well as alternative treatments Consume well balanced diet, preferably low in saturated fats (solid at room temperature, such as butter, margarine, Crisco, etc) and low in sodium (<2,000mg per day). Consume plenty of fruits/vegetables , healthy grains/whole grains, unsaturated/healt hy fats (liquid at room temperature, such as olive oil, sunflower seed oil, canola, vegetable, etc.). Exercise regularly - Develop an exercise routine. 30 minutes of moderate exercise (walking at a brisk pace) 5 times per week is recommended. You should work hard enough to cause a sweat but still be able to talk with others while exercising. Exercise improves overall health - improves blood pressure and blood sugar, helps control weight, reduces stress, and improves mood. Practice stress reduction techniques, such as guided imagery, journaling, aromatherapy, acupuncture/acupr essure, deep breathing, etc. Practice healthy sleep hygiene - maintain regular routine, no caffeine after 1PM, no exercise 1-2 hours prior to bedtime, keep bedroom dark and cool, no TV or electronics while in bed. Consider melatonin as needed. Consider cognitive behavioral therapy for insomnia (CBT-I). Consider/Continue therapy. Consider/Continue substance cessation therapy as needed - contact office if desiring medication assisted therapy. Manage co-morbid conditions. Continue monitoring symptoms - report persistent or worsening/concern ing symptoms to the office or go to the ER. For mental health CRISIS, please reach out to [phone] (National Suicide and Crisis Lifeline), 911, go to the emergency department, or contact the [facility] Crisis Unit/Team. Follow up as scheduled in 1 week or sooner if necessary. Follow up with PCP and/or other specialists as advised. NEXT STEP: Consider medication adjustments as needed. 09/01/2024 Bipolar 2 disorder (ICD-10 - F31.81) Duration (acute/chronic), stability (controlled/uncon trolled): Chronic, subjectively over sedated with recent medication adjustments, necessitating return to previous medication regimen, see HPI Current medications/effic acy: Somewhat, room for improvement Previous medication trials: aripiprazole, lamotrigine, sertraline, hydroxyzine, gabapentin, trazodone, buspirone (ineffective), risperidone (oversedation) Current/previous therapies: Patient and currently in couple's therapy, follow up every 2 weeks Examination as documented - see pertinent aspects of office visit documentation. Pertinent diagnostics: LABS MONITORED BY PCP Differential diagnoses: RECOMMENDATIONS: STOP risperidone due to oversedation and INCREASE aripiprazole as prescribed/discus sed to assist with mood/stability, continue monitoring anorgasmia - educated patient/guardian on adverse effects, risks and benefits, as well as alternative treatments DECREASE lamotrigine as prescribed/discus sed to assist with sedation - educated patient/guardian on adverse effects, risks and benefits, as well as alternative treatments Continue other medications as prescribed - educated patient/guardian on adverse effects, risks and benefits, as well as alternative treatments Consume well balanced diet, preferably low in saturated fats (solid at room temperature, such as butter, margarine, Crisco, etc) and low in sodium (<2,000mg per day). Consume plenty of fruits/vegetables , healthy grains/whole grains, unsaturated/healt hy fats (liquid at room temperature, such as olive oil, sunflower seed oil, canola, vegetable, etc.). Exercise regularly - Develop an exercise routine. 30 minutes of moderate exercise (walking at a brisk pace) 5 times per week is recommended. You should work hard enough to cause a sweat but still be able to talk with others while exercising. Exercise improves overall health - improves blood pressure and blood sugar, helps control weight, reduces stress, and improves mood. Practice stress reduction techniques, such as guided imagery, journaling, aromatherapy, acupuncture/acupr essure, deep breathing, etc. Practice healthy sleep hygiene - maintain regular routine, no caffeine after 1PM, no exercise 1-2 hours prior to bedtime, keep bedroom dark and cool, no TV or electronics while in bed. Consider melatonin as needed. Consider cognitive behavioral therapy for insomnia (CBT-I). Consider/Continue therapy. Consider/Continue substance cessation therapy as needed - contact office if desiring medication assisted therapy. Manage co-morbid conditions. Continue monitoring symptoms - report persistent or worsening/concern ing symptoms to the office or go to the ER. For mental health CRISIS, please reach out to [phone] (National Suicide and Crisis Lifeline), 911, go to the emergency department, or contact the [facility]/Team. Follow up as scheduled in 1 week or sooner if necessary. Follow up with PCP and/or other specialists as advised. NEXT STEP: Consider medication adjustments as needed. 10/05/2024 Bipolar 2 disorder (ICD-10 - F31.81) Duration (acute/chronic), stability (controlled/uncon trolled): Chronic, subjectively uncontrolled, see HPI Current medications/effic acy: Somewhat, room for improvement Previous medication trials: aripiprazole, lamotrigine, sertraline, hydroxyzine, gabapentin, trazodone, buspirone (ineffective), risperidone (oversedation), latuda Current/previous therapies: Patient and currently in couple's therapy, follow up every 2 weeks Examination as documented - see pertinent aspects of office visit documentation. Pertinent diagnostics: LABS MONITORED BY PCP Differential diagnoses: RECOMMENDATIONS: STOP lurasidone and INCREASE evening dose of aripiprazole as prescribed/discus sed to assist with mood/stability, continue monitoring anorgasmia - educated patient/guardian on adverse effects, risks and benefits, as well as alternative treatments Continue other medications as prescribed - educated patient/guardian on adverse effects, risks and benefits, as well as alternative treatments Consume well balanced diet, preferably low in saturated fats (solid at room temperature, such as butter, margarine, Crisco, etc) and low in sodium (<2,000mg per day). Consume plenty of fruits/vegetables , healthy grains/whole grains, unsaturated/healt hy fats (liquid at room temperature, such as olive oil, sunflower seed oil, canola, vegetable, etc.). Exercise regularly - Develop an exercise routine. 30 minutes of moderate exercise (walking at a brisk pace) 5 times per week is recommended. You should work hard enough to cause a sweat but still be able to talk with others while exercising. Exercise improves overall health - improves blood pressure and blood sugar, helps control weight, reduces stress, and improves mood. Practice stress reduction techniques, such as guided imagery, journaling, aromatherapy, acupuncture/acupr essure, deep breathing, etc. Practice healthy sleep hygiene - maintain regular routine, no caffeine after 1PM, no exercise 1-2 hours prior to bedtime, keep bedroom dark and cool, no TV or electronics while in bed. Consider melatonin as needed. Consider cognitive behavioral therapy for insomnia (CBT-I). Consider/Continue therapy. Consider/Continue substance cessation therapy as needed - contact office if desiring medication assisted therapy. Manage co-morbid conditions. Continue monitoring symptoms - report persistent or worsening/concern ing symptoms to the office or go to the ER. For mental health CRISIS, please reach out to [phone] ([employer] Suicide and Crisis Lifeline), 911, go to the emergency department, or contact the [facility] Crisis Unit/Team. Follow up as scheduled in 1 week or sooner if necessary. Follow up with PCP and/or other specialists as advised. NEXT STEP: Consider medication adjustments as needed. 10/05/2024 PTSD (post-traumatic stress disorder) (ICD-10 - F43.10) See assessment and plan for bipolar 2 disorder 09/01/2024 PTSD (post-traumatic stress disorder) (ICD-10 - F43.10) See assessment and plan for bipolar 2 disorder 01/30/2024 Bipolar 2 disorder (ICD-10 - F31.81) 09/21/2024 PTSD (post-traumatic stress disorder) (ICD-10 - F43.10) See assessment and plan for bipolar 2 disorder 02/20/2024 PTSD (post-traumatic stress disorder) (ICD-10 - F43.10) See assessment and plan for bipolar 2 disorder 08/18/2024 PTSD (post-traumatic stress disorder) (ICD-10 - F43.10) See assessment and plan for bipolar 2 disorder 07/06/2024 PTSD (post-traumatic stress disorder) (ICD-10 - F43.10) See assessment and plan for bipolar 2 disorder 08/25/2024 PTSD (post-traumatic stress disorder) (ICD-10 - F43.10) See assessment and plan for bipolar 2 disorder 09/08/2024 PTSD (post-traumatic stress disorder) (ICD-10 - F43.10) See assessment and plan for bipolar 2 disorder 12/22/2024 PTSD (post-traumatic stress disorder) (ICD-10 - F43.10) See assessment and plan for bipolar 2 disorder 10/27/2024 PTSD (post-traumatic stress disorder) (ICD-10 - F43.10) See assessment and plan for bipolar 2 disorder 10/19/2024 PTSD (post-traumatic stress disorder) (ICD-10 - F43.10) See assessment and plan for bipolar 2 disorder 08/12/2024 PTSD (post-traumatic stress disorder) (ICD-10 - F43.10) See assessment and plan for bipolar 2 disorder 08/05/2024 PTSD (post-traumatic stress disorder) (ICD-10 - F43.10) See assessment and plan for bipolar 2 disorder 07/20/2024 PTSD (post-traumatic stress disorder) (ICD-10 - F43.10) See assessment and plan for bipolar 2 disorder 06/11/2024 PTSD (post-traumatic stress disorder) (ICD-10 - F43.10) See assessment and plan for bipolar 2 disorder 05/18/2024 PTSD (post-traumatic stress disorder) (ICD-10 - F43.10) See assessment and plan for bipolar 2 disorder 04/16/2024 PTSD (post-traumatic stress disorder) (ICD-10 - F43.10) See assessment and plan for bipolar 2 disorder 01/13/2024 Bipolar 2 disorder (ICD-10 - F31.81) Client experienced daytime fatigue when lamotrigine was at 200 mg/day. 01/13/2024 History of ADHD (ICD-10 - Z86.59) 04/16/2024 Panic disorder (ICD-10 - F41.0) See assessment and plan for bipolar 2 disorder 05/18/2024 Panic disorder (ICD-10 - F41.0) See assessment and plan for bipolar 2 disorder 06/11/2024 Panic disorder (ICD-10 - F41.0) See assessment and plan for bipolar 2 disorder 07/20/2024 Panic disorder (ICD-10 - F41.0) See assessment and plan for bipolar 2 disorder 08/05/2024 Panic disorder (ICD-10 - F41.0) See assessment and plan for bipolar 2 disorder 08/12/2024 Panic disorder (ICD-10 - F41.0) See assessment and plan for bipolar 2 disorder 10/19/2024 Panic disorder (ICD-10 - F41.0) See assessment and plan for bipolar 2 disorder 10/27/2024 Panic disorder (ICD-10 - F41.0) See assessment and plan for bipolar 2 disorder 12/22/2024 Panic disorder (ICD-10 - F41.0) See assessment and plan for bipolar 2 disorder 09/08/2024 Panic disorder (ICD-10 - F41.0) See assessment and plan for bipolar 2 disorder 08/25/2024 Panic disorder (ICD-10 - F41.0) See assessment and plan for bipolar 2 disorder 07/06/2024 Panic disorder (ICD-10 - F41.0) See assessment and plan for bipolar 2 disorder 08/18/2024 Panic disorder (ICD-10 - F41.0) See assessment and plan for bipolar 2 disorder 02/20/2024 Panic disorder (ICD-10 - F41.0) See assessment and plan for bipolar 2 disorder 09/21/2024 Panic disorder (ICD-10 - F41.0) See assessment and plan for bipolar 2 disorder 09/01/2024 Panic disorder (ICD-10 - F41.0) See assessment and plan for bipolar 2 disorder 10/05/2024 Panic disorder (ICD-10 - F41.0) See assessment and plan for bipolar 2 disorder 10/05/2024 Sleep behavior disorder, REM (ICD-10 - G47.52) Duration (acute/chronic), stability (controlled/uncon trolled): Chronic, well controlled on current medication regimen Current medications/effic acy: Yes Previous medication trials: gabapentin Current/previous therapies: Patient and currently in couple's therapy, follow up every 2 weeks Examination as documented - see pertinent aspects of office visit documentation. Pertinent diagnostics: LABS MONITORED BY PCP Differential diagnoses: RECOMMENDATIONS: Continue medications as prescribed - educated patient/guardian on adverse effects, risks and benefits, as well as alternative treatments Consume well balanced diet, preferably low in saturated fats (solid at room temperature, such as butter, margarine, Crisco, etc) and low in sodium (<2,000mg per day). Consume plenty of fruits/vegetables , healthy grains/whole grains, unsaturated/healt hy fats (liquid at room temperature, such as olive oil, sunflower seed oil, canola, vegetable, etc.). Exercise regularly - Develop an exercise routine. 30 minutes of moderate exercise (walking at a brisk pace) 5 times per week is recommended. You should work hard enough to cause a sweat but still be able to talk with others while exercising. Exercise improves overall health - improves blood pressure and blood sugar, helps control weight, reduces stress, and improves mood. Practice stress reduction techniques, such as guided imagery, journaling, aromatherapy, acupuncture/acupr essure, deep breathing, etc. Practice healthy sleep hygiene - maintain regular routine, no caffeine after 1PM, no exercise 1-2 hours prior to bedtime, keep bedroom dark and cool, no TV or electronics while in bed. Consider melatonin as needed. Consider cognitive behavioral therapy for insomnia (CBT-I). Consider/Continue therapy. Consider/Continue substance cessation therapy as needed - contact office if desiring medication assisted therapy. Manage co-morbid conditions. Continue monitoring symptoms - report persistent or worsening/concern ing symptoms to the office or go to the ER. For mental health CRISIS, please reach out to [phone] ([employer] Suicide and Crisis Lifeline), 911, go to the emergency department, or contact the [facility] Crisis Unit/Team. Follow up as scheduled in 1 week or sooner if necessary. Follow up with PCP and/or other specialists as advised. NEXT STEP: Consider medication adjustments as needed. 09/21/2024 Sleep behavior disorder, REM (ICD-10 - G47.52) Duration (acute/chronic), stability (controlled/uncon trolled): Chronic, well controlled on current medication regimen Current medications/effic acy: Yes Previous medication trials: gabapentin Current/previous therapies: Patient and currently in couple's therapy, follow up every 2 weeks Examination as documented - see pertinent aspects of office visit documentation. Pertinent diagnostics: LABS MONITORED BY PCP Differential diagnoses: RECOMMENDATIONS: Continue medications as prescribed - educated patient/guardian on adverse effects, risks and benefits, as well as alternative treatments Consume well balanced diet, preferably low in saturated fats (solid at room temperature, such as butter, margarine, Crisco, etc) and low in sodium (<2,000mg per day). Consume plenty of fruits/vegetables , healthy grains/whole grains, unsaturated/healt hy fats (liquid at room temperature, such as olive oil, sunflower seed oil, canola, vegetable, etc.). Exercise regularly - Develop an exercise routine. 30 minutes of moderate exercise (walking at a brisk pace) 5 times per week is recommended. You should work hard enough to cause a sweat but still be able to talk with others while exercising. Exercise improves overall health - improves blood pressure and blood sugar, helps control weight, reduces stress, and improves mood. Practice stress reduction techniques, such as guided imagery, journaling, aromatherapy, acupuncture/acupr essure, deep breathing, etc. Practice healthy sleep hygiene - maintain regular routine, no caffeine after 1PM, no exercise 1-2 hours prior to bedtime, keep bedroom dark and cool, no TV or electronics while in bed. Consider melatonin as needed. Consider cognitive behavioral therapy for insomnia (CBT-I). Consider/Continue therapy. Consider/Continue substance cessation therapy as needed - contact office if desiring medication assisted therapy. Manage co-morbid conditions. Continue monitoring symptoms - report persistent or worsening/concern ing symptoms to the office or go to the ER. For mental health CRISIS, please reach out to [phone] ([employer] Suicide and Crisis Lifeline), 911, go to the emergency department, or contact the [facility] Crisis Unit/Team. Follow up as scheduled in 1 week or sooner if necessary. Follow up with PCP and/or other specialists as advised. NEXT STEP: Consider medication adjustments as needed. 09/01/2024 Sleep behavior disorder, REM (ICD-10 - G47.52) Duration (acute/chronic), stability (controlled/uncon trolled): Chronic, well controlled on current medication regimen Current medications/effic acy: Yes Previous medication trials: gabapentin Current/previous therapies: Patient and currently in couple's therapy, follow up every 2 weeks Examination as documented - see pertinent aspects of office visit documentation. Pertinent diagnostics: LABS MONITORED BY PCP Differential diagnoses: RECOMMENDATIONS: Continue medications as prescribed - educated patient/guardian on adverse effects, risks and benefits, as well as alternative treatments Consume well balanced diet, preferably low in saturated fats (solid at room temperature, such as butter, margarine, Crisco, etc) and low in sodium (<2,000mg per day). Consume plenty of fruits/vegetables , healthy grains/whole grains, unsaturated/healt hy fats (liquid at room temperature, such as olive oil, sunflower seed oil, canola, vegetable, etc.). Exercise regularly - Develop an exercise routine. 30 minutes of moderate exercise (walking at a brisk pace) 5 times per week is recommended. You should work hard enough to cause a sweat but still be able to talk with others while exercising. Exercise improves overall health - improves blood pressure and blood sugar, helps control weight, reduces stress, and improves mood. Practice stress reduction techniques, such as guided imagery, journaling, aromatherapy, acupuncture/acupr essure, deep breathing, etc. Practice healthy sleep hygiene - maintain regular routine, no caffeine after 1PM, no exercise 1-2 hours prior to bedtime, keep bedroom dark and cool, no TV or electronics while in bed. Consider melatonin as needed. Consider cognitive behavioral therapy for insomnia (CBT-I). Consider/Continue therapy. Consider/Continue substance cessation therapy as needed - contact office if desiring medication assisted therapy. Manage co-morbid conditions. Continue monitoring symptoms - report persistent or worsening/concern ing symptoms to the office or go to the ER. For mental health CRISIS, please reach out to [phone] ([employer] Suicide and Crisis Lifeline), 911, go to the emergency department, or contact the [facility] Crisis Unit/Team. Follow up as scheduled in 1 week or sooner if necessary. Follow up with PCP and/or other specialists as advised. NEXT STEP: Consider medication adjustments as needed. 07/06/2024 Sleep behavior disorder, REM (ICD-10 - G47.52) Duration (acute/chronic), stability (controlled/uncon trolled): Chronic, well controlled on current medication regimen Current medications/effic acy: Yes Previous medication trials: gabapentin Current/previous therapies: Patient and currently in couple's therapy, follow up every 2 weeks Examination as documented - see pertinent aspects of office visit documentation. Pertinent diagnostics: LABS MONITORED BY PCP Differential diagnoses: RECOMMENDATIONS: Continue medications as prescribed - educated patient/guardian on adverse effects, risks and benefits, as well as alternative treatments Consume well balanced diet, preferably low in saturated fats (solid at room temperature, such as butter, margarine, Crisco, etc) and low in sodium (<2,000mg per day). Consume plenty of fruits/vegetables , healthy grains/whole grains, unsaturated/healt hy fats (liquid at room temperature, such as olive oil, sunflower seed oil, canola, vegetable, etc.). Exercise regularly - Develop an exercise routine. 30 minutes of moderate exercise (walking at a brisk pace) 5 times per week is recommended. You should work hard enough to cause a sweat but still be able to talk with others while exercising. Exercise improves overall health - improves blood pressure and blood sugar, helps control weight, reduces stress, and improves mood. Practice stress reduction techniques, such as guided imagery, journaling, aromatherapy, acupuncture/acupr essure, deep breathing, etc. Practice healthy sleep hygiene - maintain regular routine, no caffeine after 1PM, no exercise 1-2 hours prior to bedtime, keep bedroom dark and cool, no TV or electronics while in bed. Consider melatonin as needed. Consider cognitive behavioral therapy for insomnia (CBT-I). Consider/Continue therapy. Consider/Continue substance cessation therapy as needed - contact office if desiring medication assisted therapy. Manage co-morbid conditions. Continue monitoring symptoms - report persistent or worsening/concern ing symptoms to the office or go to the ER. For mental health CRISIS, please reach out to [phone] ([employer] Suicide and Crisis Lifeline), 911, go to the emergency department, or contact the [facility] Crisis Unit/Team. Follow up as scheduled in 4 weeks or sooner if necessary. Follow up with PCP and/or other specialists as advised. NEXT STEP: Consider medication adjustments as needed. 02/20/2024 Sleep behavior disorder, REM (ICD-10 - G47.52) Duration (acute/chronic), stability (controlled/uncon trolled): Chronic, well controlled on current medication regimen Current medications/effic acy: Yes Previous medication trials: gabapentin Current/previous therapies: Patient and currently in couple's therapy, follow up every 2 weeks Examination as documented - see pertinent aspects of office visit documentation. Pertinent diagnostics: LABS MONITORED BY PCP Differential diagnoses: RECOMMENDATIONS: Continue medications as prescribed - educated patient/guardian on adverse effects, risks and benefits, as well as alternative treatments Consume well balanced diet, preferably low in saturated fats (solid at room temperature, such as butter, margarine, Crisco, etc) and low in sodium (<2,000mg per day). Consume plenty of fruits/vegetables , healthy grains/whole grains, unsaturated/healt hy fats (liquid at room temperature, such as olive oil, sunflower seed oil, canola, vegetable, etc.). Exercise regularly - Develop an exercise routine. 30 minutes of moderate exercise (walking at a brisk pace) 5 times per week is recommended. You should work hard enough to cause a sweat but still be able to talk with others while exercising. Exercise improves overall health - improves blood pressure and blood sugar, helps control weight, reduces stress, and improves mood. Practice stress reduction techniques, such as guided imagery, journaling, aromatherapy, acupuncture/acupr essure, deep breathing, etc. Practice healthy sleep hygiene - maintain regular routine, no caffeine after 1PM, no exercise 1-2 hours prior to bedtime, keep bedroom dark and cool, no TV or electronics while in bed. Consider melatonin as needed. Consider cognitive behavioral therapy for insomnia (CBT-I). Consider/Continue therapy. Consider/Continue substance cessation therapy as needed - contact office if desiring medication assisted therapy. Manage co-morbid conditions. Continue monitoring symptoms - report persistent or worsening/concern ing symptoms to the office or go to the ER. For mental health CRISIS, please reach out to [phone] ([employer] Suicide and Crisis Lifeline), 911, go to the emergency department, or contact the [facility]/Team. Follow up as scheduled in 4 weeks or sooner if necessary. Follow up with PCP and/or other specialists as advised. NEXT STEP: Consider medication adjustments as needed. 08/18/2024 Sleep behavior disorder, REM (ICD-10 - G47.52) Duration (acute/chronic), stability (controlled/uncon trolled): Chronic, well controlled on current medication regimen Current medications/effic acy: Yes Previous medication trials: gabapentin Current/previous therapies: Patient and currently in couple's therapy, follow up every 2 weeks Examination as documented - see pertinent aspects of office visit documentation. Pertinent diagnostics: LABS MONITORED BY PCP Differential diagnoses: RECOMMENDATIONS: Continue medications as prescribed - educated patient/guardian on adverse effects, risks and benefits, as well as alternative treatments Consume well balanced diet, preferably low in saturated fats (solid at room temperature, such as butter, margarine, Crisco, etc) and low in sodium (<2,000mg per day). Consume plenty of fruits/vegetables , healthy grains/whole grains, unsaturated/healt hy fats (liquid at room temperature, such as olive oil, sunflower seed oil, canola, vegetable, etc.). Exercise regularly - Develop an exercise routine. 30 minutes of moderate exercise (walking at a brisk pace) 5 times per week is recommended. You should work hard enough to cause a sweat but still be able to talk with others while exercising. Exercise improves overall health - improves blood pressure and blood sugar, helps control weight, reduces stress, and improves mood. Practice stress reduction techniques, such as guided imagery, journaling, aromatherapy, acupuncture/acupr essure, deep breathing, etc. Practice healthy sleep hygiene - maintain regular routine, no caffeine after 1PM, no exercise 1-2 hours prior to bedtime, keep bedroom dark and cool, no TV or electronics while in bed. Consider melatonin as needed. Consider cognitive behavioral therapy for insomnia (CBT-I). Consider/Continue therapy. Consider/Continue substance cessation therapy as needed - contact office if desiring medication assisted therapy. Manage co-morbid conditions. Continue monitoring symptoms - report persistent or worsening/concern ing symptoms to the office or go to the ER. For mental health CRISIS, please reach out to [phone] ([employer] Suicide and Crisis Lifeline), 911, go to the emergency department, or contact the [facility]/Team. Follow up as scheduled in 1 week or sooner if necessary. Follow up with PCP and/or other specialists as advised. NEXT STEP: Consider medication adjustments as needed. 08/25/2024 Sleep behavior disorder, REM (ICD-10 - G47.52) Duration (acute/chronic), stability (controlled/uncon trolled): Chronic, well controlled on current medication regimen Current medications/effic acy: Yes Previous medication trials: gabapentin Current/previous therapies: Patient and currently in couple's therapy, follow up every 2 weeks Examination as documented - see pertinent aspects of office visit documentation. Pertinent diagnostics: LABS MONITORED BY PCP Differential diagnoses: RECOMMENDATIONS: Continue medications as prescribed - educated patient/guardian on adverse effects, risks and benefits, as well as alternative treatments Consume well balanced diet, preferably low in saturated fats (solid at room temperature, such as butter, margarine, Crisco, etc) and low in sodium (<2,000mg per day). Consume plenty of fruits/vegetables , healthy grains/whole grains, unsaturated/healt hy fats (liquid at room temperature, such as olive oil, sunflower seed oil, canola, vegetable, etc.). Exercise regularly - Develop an exercise routine. 30 minutes of moderate exercise (walking at a brisk pace) 5 times per week is recommended. You should work hard enough to cause a sweat but still be able to talk with others while exercising. Exercise improves overall health - improves blood pressure and blood sugar, helps control weight, reduces stress, and improves mood. Practice stress reduction techniques, such as guided imagery, journaling, aromatherapy, acupuncture/acupr essure, deep breathing, etc. Practice healthy sleep hygiene - maintain regular routine, no caffeine after 1PM, no exercise 1-2 hours prior to bedtime, keep bedroom dark and cool, no TV or electronics while in bed. Consider melatonin as needed. Consider cognitive behavioral therapy for insomnia (CBT-I). Consider/Continue therapy. Consider/Continue substance cessation therapy as needed - contact office if desiring medication assisted therapy. Manage co-morbid conditions. Continue monitoring symptoms - report persistent or worsening/concern ing symptoms to the office or go to the ER. For mental health CRISIS, please reach out to [phone] ([employer] Suicide and Crisis Lifeline), 911, go to the emergency department, or contact the [facility]/Team. Follow up as scheduled in 1 week or sooner if necessary. Follow up with PCP and/or other specialists as advised. NEXT STEP: Consider medication adjustments as needed. 08/12/2024 Sleep behavior disorder, REM (ICD-10 - G47.52) Duration (acute/chronic), stability (controlled/uncon trolled): Chronic, well controlled on current medication regimen Current medications/effic acy: Yes Previous medication trials: gabapentin Current/previous therapies: Patient and currently in couple's therapy, follow up every 2 weeks Examination as documented - see pertinent aspects of office visit documentation. Pertinent diagnostics: LABS MONITORED BY PCP Differential diagnoses: RECOMMENDATIONS: Continue medications as prescribed - educated patient/guardian on adverse effects, risks and benefits, as well as alternative treatments Consume well balanced diet, preferably low in saturated fats (solid at room temperature, such as butter, margarine, Crisco, etc) and low in sodium (<2,000mg per day). Consume plenty of fruits/vegetables , healthy grains/whole grains, unsaturated/healt hy fats (liquid at room temperature, such as olive oil, sunflower seed oil, canola, vegetable, etc.). Exercise regularly - Develop an exercise routine. 30 minutes of moderate exercise (walking at a brisk pace) 5 times per week is recommended. You should work hard enough to cause a sweat but still be able to talk with others while exercising. Exercise improves overall health - improves blood pressure and blood sugar, helps control weight, reduces stress, and improves mood. Practice stress reduction techniques, such as guided imagery, journaling, aromatherapy, acupuncture/acupr essure, deep breathing, etc. Practice healthy sleep hygiene - maintain regular routine, no caffeine after 1PM, no exercise 1-2 hours prior to bedtime, keep bedroom dark and cool, no TV or electronics while in bed. Consider melatonin as needed. Consider cognitive behavioral therapy for insomnia (CBT-I). Consider/Continue therapy. Consider/Continue substance cessation therapy as needed - contact office if desiring medication assisted therapy. Manage co-morbid conditions. Continue monitoring symptoms - report persistent or worsening/concern ing symptoms to the office or go to the ER. For mental health CRISIS, please reach out to [phone] ([employer] Suicide and Crisis Lifeline), 911, go to the emergency department, or contact the [facility]/Team. Follow up as scheduled in 1 week or sooner if necessary. Follow up with PCP and/or other specialists as advised. NEXT STEP: Consider medication adjustments as needed. 09/08/2024 Sleep behavior disorder, REM (ICD-10 - G47.52) Duration (acute/chronic), stability (controlled/uncon trolled): Chronic, well controlled on current medication regimen Current medications/effic acy: Yes Previous medication trials: gabapentin Current/previous therapies: Patient and currently in couple's therapy, follow up every 2 weeks Examination as documented - see pertinent aspects of office visit documentation. Pertinent diagnostics: LABS MONITORED BY PCP Differential diagnoses: RECOMMENDATIONS: Continue medications as prescribed - educated patient/guardian on adverse effects, risks and benefits, as well as alternative treatments Consume well balanced diet, preferably low in saturated fats (solid at room temperature, such as butter, margarine, Crisco, etc) and low in sodium (<2,000mg per day). Consume plenty of fruits/vegetables , healthy grains/whole grains, unsaturated/healt hy fats (liquid at room temperature, such as olive oil, sunflower seed oil, canola, vegetable, etc.). Exercise regularly - Develop an exercise routine. 30 minutes of moderate exercise (walking at a brisk pace) 5 times per week is recommended. You should work hard enough to cause a sweat but still be able to talk with others while exercising. Exercise improves overall health - improves blood pressure and blood sugar, helps control weight, reduces stress, and improves mood. Practice stress reduction techniques, such as guided imagery, journaling, aromatherapy, acupuncture/acupr essure, deep breathing, etc. Practice healthy sleep hygiene - maintain regular routine, no caffeine after 1PM, no exercise 1-2 hours prior to bedtime, keep bedroom dark and cool, no TV or electronics while in bed. Consider melatonin as needed. Consider cognitive behavioral therapy for insomnia (CBT-I). Consider/Continue therapy. Consider/Continue substance cessation therapy as needed - contact office if desiring medication assisted therapy. Manage co-morbid conditions. Continue monitoring symptoms - report persistent or worsening/concern ing symptoms to the office or go to the ER. For mental health CRISIS, please reach out to [phone] ([employer] Suicide and Crisis Lifeline), 911, go to the emergency department, or contact the [facility]/Team. Follow up as scheduled in 1 week or sooner if necessary. Follow up with PCP and/or other specialists as advised. NEXT STEP: Consider medication adjustments as needed. 12/22/2024 Concentration deficit (ICD-10 - R41.840) 10/27/2024 Sleep behavior disorder, REM (ICD-10 - G47.52) Duration (acute/chronic), stability (controlled/uncon trolled): Chronic, well controlled on current medication regimen Current medications/effic acy: Yes Previous medication trials: gabapentin Current/previous therapies: Patient and currently in couple's therapy, follow up every 2 weeks Examination as documented - see pertinent aspects of office visit documentation. Pertinent diagnostics: LABS MONITORED BY PCP Differential diagnoses: RECOMMENDATIONS: Continue medications as prescribed - educated patient/guardian on adverse effects, risks and benefits, as well as alternative treatments Consume well balanced diet, preferably low in saturated fats (solid at room temperature, such as butter, margarine, Crisco, etc) and low in sodium (<2,000mg per day). Consume plenty of fruits/vegetables , healthy grains/whole grains, unsaturated/healt hy fats (liquid at room temperature, such as olive oil, sunflower seed oil, canola, vegetable, etc.). Exercise regularly - Develop an exercise routine. 30 minutes of moderate exercise (walking at a brisk pace) 5 times per week is recommended. You should work hard enough to cause a sweat but still be able to talk with others while exercising. Exercise improves overall health - improves blood pressure and blood sugar, helps control weight, reduces stress, and improves mood. Practice stress reduction techniques, such as guided imagery, journaling, aromatherapy, acupuncture/acupr essure, deep breathing, etc. Practice healthy sleep hygiene - maintain regular routine, no caffeine after 1PM, no exercise 1-2 hours prior to bedtime, keep bedroom dark and cool, no TV or electronics while in bed. Consider melatonin as needed. Consider cognitive behavioral therapy for insomnia (CBT-I). Consider/Continue therapy. Consider/Continue substance cessation therapy as needed - contact office if desiring medication assisted therapy. Manage co-morbid conditions. Continue monitoring symptoms - report persistent or worsening/concern ing symptoms to the office or go to the ER. For mental health CRISIS, please reach out to [phone] ([employer] [facility]), 911, go to the emergency department, or contact the [facility]/Team. Follow up as scheduled in 1 week or sooner if necessary. Follow up with PCP and/or other specialists as advised. NEXT STEP: Consider medication adjustments as needed. 10/19/2024 Sleep behavior disorder, REM (ICD-10 - G47.52) Duration (acute/chronic), stability (controlled/uncon trolled): Chronic, well controlled on current medication regimen Current medications/effic acy: Yes Previous medication trials: gabapentin Current/previous therapies: Patient and currently in couple's therapy, follow up every 2 weeks Examination as documented - see pertinent aspects of office visit documentation. Pertinent diagnostics: LABS MONITORED BY PCP Differential diagnoses: RECOMMENDATIONS: Continue medications as prescribed - educated patient/guardian on adverse effects, risks and benefits, as well as alternative treatments Consume well balanced diet, preferably low in saturated fats (solid at room temperature, such as butter, margarine, Crisco, etc) and low in sodium (<2,000mg per day). Consume plenty of fruits/vegetables , healthy grains/whole grains, unsaturated/healt hy fats (liquid at room temperature, such as olive oil, sunflower seed oil, canola, vegetable, etc.). Exercise regularly - Develop an exercise routine. 30 minutes of moderate exercise (walking at a brisk pace) 5 times per week is recommended. You should work hard enough to cause a sweat but still be able to talk with others while exercising. Exercise improves overall health - improves blood pressure and blood sugar, helps control weight, reduces stress, and improves mood. Practice stress reduction techniques, such as guided imagery, journaling, aromatherapy, acupuncture/acupr essure, deep breathing, etc. Practice healthy sleep hygiene - maintain regular routine, no caffeine after 1PM, no exercise 1-2 hours prior to bedtime, keep bedroom dark and cool, no TV or electronics while in bed. Consider melatonin as needed. Consider cognitive behavioral therapy for insomnia (CBT-I). Consider/Continue therapy. Consider/Continue substance cessation therapy as needed - contact office if desiring medication assisted therapy. Manage co-morbid conditions. Continue monitoring symptoms - report persistent or worsening/concern ing symptoms to the office or go to the ER. For mental health CRISIS, please reach out to [phone] ([employer] [facility]), 911, go to the emergency department, or contact the [facility]/Team. Follow up as scheduled in 1 week or sooner if necessary. Follow up with PCP and/or other specialists as advised. NEXT STEP: Consider medication adjustments as needed. 07/20/2024 Sleep behavior disorder, REM (ICD-10 - G47.52) Duration (acute/chronic), stability (controlled/uncon trolled): Chronic, well controlled on current medication regimen Current medications/effic acy: Yes Previous medication trials: gabapentin Current/previous therapies: Patient and currently in couple's therapy, follow up every 2 weeks Examination as documented - see pertinent aspects of office visit documentation. Pertinent diagnostics: LABS MONITORED BY PCP Differential diagnoses: RECOMMENDATIONS: Continue medications as prescribed - educated patient/guardian on adverse effects, risks and benefits, as well as alternative treatments Consume well balanced diet, preferably low in saturated fats (solid at room temperature, such as butter, margarine, Crisco, etc) and low in sodium (<2,000mg per day). Consume plenty of fruits/vegetables , healthy grains/whole grains, unsaturated/healt hy fats (liquid at room temperature, such as olive oil, sunflower seed oil, canola, vegetable, etc.). Exercise regularly - Develop an exercise routine. 30 minutes of moderate exercise (walking at a brisk pace) 5 times per week is recommended. You should work hard enough to cause a sweat but still be able to talk with others while exercising. Exercise improves overall health - improves blood pressure and blood sugar, helps control weight, reduces stress, and improves mood. Practice stress reduction techniques, such as guided imagery, journaling, aromatherapy, acupuncture/acupr essure, deep breathing, etc. Practice healthy sleep hygiene - maintain regular routine, no caffeine after 1PM, no exercise 1-2 hours prior to bedtime, keep bedroom dark and cool, no TV or electronics while in bed. Consider melatonin as needed. Consider cognitive behavioral therapy for insomnia (CBT-I). Consider/Continue therapy. Consider/Continue substance cessation therapy as needed - contact office if desiring medication assisted therapy. Manage co-morbid conditions. Continue monitoring symptoms - report persistent or worsening/concern ing symptoms to the office or go to the ER. For mental health CRISIS, please reach out to [phone] ([employer] [facility]), 911, go to the emergency department, or contact the [facility]/Team. Follow up as scheduled in 2 weeks or sooner if necessary. Follow up with PCP and/or other specialists as advised. NEXT STEP: Consider medication adjustments as needed. 08/05/2024 Sleep behavior disorder, REM (ICD-10 - G47.52) Duration (acute/chronic), stability (controlled/uncon trolled): Chronic, well controlled on current medication regimen Current medications/effic acy: Yes Previous medication trials: gabapentin Current/previous therapies: Patient and currently in couple's therapy, follow up every 2 weeks Examination as documented - see pertinent aspects of office visit documentation. Pertinent diagnostics: LABS MONITORED BY PCP Differential diagnoses: RECOMMENDATIONS: Continue medications as prescribed - educated patient/guardian on adverse effects, risks and benefits, as well as alternative treatments Consume well balanced diet, preferably low in saturated fats (solid at room temperature, such as butter, margarine, Crisco, etc) and low in sodium (<2,000mg per day). Consume plenty of fruits/vegetables , healthy grains/whole grains, unsaturated/healt hy fats (liquid at room temperature, such as olive oil, sunflower seed oil, canola, vegetable, etc.). Exercise regularly - Develop an exercise routine. 30 minutes of moderate exercise (walking at a brisk pace) 5 times per week is recommended. You should work hard enough to cause a sweat but still be able to talk with others while exercising. Exercise improves overall health - improves blood pressure and blood sugar, helps control weight, reduces stress, and improves mood. Practice stress reduction techniques, such as guided imagery, journaling, aromatherapy, acupuncture/acupr essure, deep breathing, etc. Practice healthy sleep hygiene - maintain regular routine, no caffeine after 1PM, no exercise 1-2 hours prior to bedtime, keep bedroom dark and cool, no TV or electronics while in bed. Consider melatonin as needed. Consider cognitive behavioral therapy for insomnia (CBT-I). Consider/Continue therapy. Consider/Continue substance cessation therapy as needed - contact office if desiring medication assisted therapy. Manage co-morbid conditions. Continue monitoring symptoms - report persistent or worsening/concern ing symptoms to the office or go to the ER. For mental health CRISIS, please reach out to [phone] ([employer] [facility]), 911, go to the emergency department, or contact the [facility]/Team. Follow up as scheduled in 2 weeks or sooner if necessary. Follow up with PCP and/or other specialists as advised. NEXT STEP: Consider medication adjustments as needed. 06/11/2024 Sleep behavior disorder, REM (ICD-10 - G47.52) Duration (acute/chronic), stability (controlled/uncon trolled): Chronic, well controlled on current medication regimen Current medications/effic acy: Yes Previous medication trials: gabapentin Current/previous therapies: Patient and currently in couple's therapy, follow up every 2 weeks Examination as documented - see pertinent aspects of office visit documentation. Pertinent diagnostics: LABS MONITORED BY PCP Differential diagnoses: RECOMMENDATIONS: Continue medications as prescribed - educated patient/guardian on adverse effects, risks and benefits, as well as alternative treatments Consume well balanced diet, preferably low in saturated fats (solid at room temperature, such as butter, margarine, Crisco, etc) and low in sodium (<2,000mg per day). Consume plenty of fruits/vegetables , healthy grains/whole grains, unsaturated/healt hy fats (liquid at room temperature, such as olive oil, sunflower seed oil, canola, vegetable, etc.). Exercise regularly - Develop an exercise routine. 30 minutes of moderate exercise (walking at a brisk pace) 5 times per week is recommended. You should work hard enough to cause a sweat but still be able to talk with others while exercising. Exercise improves overall health - improves blood pressure and blood sugar, helps control weight, reduces stress, and improves mood. Practice stress reduction techniques, such as guided imagery, journaling, aromatherapy, acupuncture/acupr essure, deep breathing, etc. Practice healthy sleep hygiene - maintain regular routine, no caffeine after 1PM, no exercise 1-2 hours prior to bedtime, keep bedroom dark and cool, no TV or electronics while in bed. Consider melatonin as needed. Consider cognitive behavioral therapy for insomnia (CBT-I). Consider/Continue therapy. Consider/Continue substance cessation therapy as needed - contact office if desiring medication assisted therapy. Manage co-morbid conditions. Continue monitoring symptoms - report persistent or worsening/concern ing symptoms to the office or go to the ER. For mental health CRISIS, please reach out to [phone] ([employer] [facility]), 911, go to the emergency department, or contact the [facility]/Team. Follow up as scheduled in 4 weeks or sooner if necessary. Follow up with PCP and/or other specialists as advised. NEXT STEP: Consider medication adjustments as needed. 04/16/2024 Sleep behavior disorder, REM (ICD-10 - G47.52) Duration (acute/chronic), stability (controlled/uncon trolled): Chronic, well controlled on current medication regimen Current medications/effic acy: Yes Previous medication trials: gabapentin Current/previous therapies: Patient and currently in couple's therapy, follow up every 2 weeks Examination as documented - see pertinent aspects of office visit documentation. Pertinent diagnostics: LABS MONITORED BY PCP Differential diagnoses: RECOMMENDATIONS: Continue medications as prescribed - educated patient/guardian on adverse effects, risks and benefits, as well as alternative treatments Consume well balanced diet, preferably low in saturated fats (solid at room temperature, such as butter, margarine, Crisco, etc) and low in sodium (<2,000mg per day). Consume plenty of fruits/vegetables , healthy grains/whole grains, unsaturated/healt hy fats (liquid at room temperature, such as olive oil, sunflower seed oil, canola, vegetable, etc.). Exercise regularly - Develop an exercise routine. 30 minutes of moderate exercise (walking at a brisk pace) 5 times per week is recommended. You should work hard enough to cause a sweat but still be able to talk with others while exercising. Exercise improves overall health - improves blood pressure and blood sugar, helps control weight, reduces stress, and improves mood. Practice stress reduction techniques, such as guided imagery, journaling, aromatherapy, acupuncture/acupr essure, deep breathing, etc. Practice healthy sleep hygiene - maintain regular routine, no caffeine after 1PM, no exercise 1-2 hours prior to bedtime, keep bedroom dark and cool, no TV or electronics while in bed. Consider melatonin as needed. Consider cognitive behavioral therapy for insomnia (CBT-I). Consider/Continue therapy. Consider/Continue substance cessation therapy as needed - contact office if desiring medication assisted therapy. Manage co-morbid conditions. Continue monitoring symptoms - report persistent or worsening/concern ing symptoms to the office or go to the ER. For mental health CRISIS, please reach out to [phone] ([employer] [facility]), 911, go to the emergency department, or contact the [facility]/Team. Follow up as scheduled in 2 weeks or sooner if necessary. Follow up with PCP and/or other specialists as advised. NEXT STEP: Consider medication adjustments as needed. 05/18/2024 Sleep behavior disorder, REM (ICD-10 - G47.52) Duration (acute/chronic), stability (controlled/uncon trolled): Chronic, well controlled on current medication regimen Current medications/effic acy: Yes Previous medication trials: gabapentin Current/previous therapies: Patient and currently in couple's therapy, follow up every 2 weeks Examination as documented - see pertinent aspects of office visit documentation. Pertinent diagnostics: LABS MONITORED BY PCP Differential diagnoses: RECOMMENDATIONS: Continue medications as prescribed - educated patient/guardian on adverse effects, risks and benefits, as well as alternative treatments Consume well balanced diet, preferably low in saturated fats (solid at room temperature, such as butter, margarine, Crisco, etc) and low in sodium (<2,000mg per day). Consume plenty of fruits/vegetables , healthy grains/whole grains, unsaturated/healt hy fats (liquid at room temperature, such as olive oil, sunflower seed oil, canola, vegetable, etc.). Exercise regularly - Develop an exercise routine. 30 minutes of moderate exercise (walking at a brisk pace) 5 times per week is recommended. You should work hard enough to cause a sweat but still be able to talk with others while exercising. Exercise improves overall health - improves blood pressure and blood sugar, helps control weight, reduces stress, and improves mood. Practice stress reduction techniques, such as guided imagery, journaling, aromatherapy, acupuncture/acupr essure, deep breathing, etc. Practice healthy sleep hygiene - maintain regular routine, no caffeine after 1PM, no exercise 1-2 hours prior to bedtime, keep bedroom dark and cool, no TV or electronics while in bed. Consider melatonin as needed. Consider cognitive behavioral therapy for insomnia (CBT-I). Consider/Continue therapy. Consider/Continue substance cessation therapy as needed - contact office if desiring medication assisted therapy. Manage co-morbid conditions. Continue monitoring symptoms - report persistent or worsening/concern ing symptoms to the office or go to the ER. For mental health CRISIS, please reach out to [phone] ([facility]), 911, go to the emergency department, or contact the [facility]/Team. Follow up as scheduled in 4 weeks or sooner if necessary. Follow up with PCP and/or other specialists as advised. NEXT STEP: Consider medication adjustments as needed. 01/13/2024 Panic disorder (ICD-10 - F41.0) 01/13/2024 Stimulant use disorder (ICD-10 - F15.90) Recommend a combination of 12-step programs, outpatient programs, and psychotherapy to maintain recovery in the outpatient setting. 06/11/2024 Nicotine dependence (ICD-10 - F17.200) Duration (acute/chronic), stability (controlled/uncon trolled): Chronic, Smokes cigarettes, has been smoking since about 12, about 5 cigarettes daily currently, previously smoked 1 pack daily, working on cutting back Current medications/effic acy: N/A Previous medication trials: N/A RECOMMENDATIONS: Consider/Continue substance cessation therapy as needed - contact office if desiring medication assisted therapy. Manage co-morbid conditions. Continue monitoring symptoms - report persistent or worsening/concern ing symptoms to the office or go to the ER. For mental health CRISIS, please reach out to [phone] ([facility]), 911, go to the emergency department, or contact the [facility]/Team. Follow up as scheduled or sooner if necessary. Follow up with PCP and/or other specialists as advised. NEXT STEP: Consider MAT as needed. 05/18/2024 Nicotine dependence (ICD-10 - F17.200) Duration (acute/chronic), stability (controlled/uncon trolled): Chronic, Smokes cigarettes, has been smoking since about 12, about 5 cigarettes daily currently, previously smoked 1 pack daily, working on cutting back Current medications/effic acy: N/A Previous medication trials: N/A RECOMMENDATIONS: Consider/Continue substance cessation therapy as needed - contact office if desiring medication assisted therapy. Manage co-morbid conditions. Continue monitoring symptoms - report persistent or worsening/concern ing symptoms to the office or go to the ER. For mental health CRISIS, please reach out to [phone] ([employer] [facility]), 911, go to the emergency department, or contact the [facility]/Team. Follow up as scheduled or sooner if necessary. Follow up with PCP and/or other specialists as advised. NEXT STEP: Consider MAT as needed. 04/16/2024 Nicotine dependence (ICD-10 - F17.200) Duration (acute/chronic), stability (controlled/uncon trolled): Chronic, Smokes cigarettes, has been smoking since about 12, about 5 cigarettes daily currently, previously smoked 1 pack daily, working on cutting back Current medications/effic acy: N/A Previous medication trials: N/A RECOMMENDATIONS: Consider/Continue substance cessation therapy as needed - contact office if desiring medication assisted therapy. Manage co-morbid conditions. Continue monitoring symptoms - report persistent or worsening/concern ing symptoms to the office or go to the ER. For mental health CRISIS, please reach out to [phone] ([employer] [facility]), 911, go to the emergency department, or contact the [facility]/Team. Follow up as scheduled or sooner if necessary. Follow up with PCP and/or other specialists as advised. NEXT STEP: Consider MAT as needed. 07/20/2024 Nicotine dependence (ICD-10 - F17.200) Duration (acute/chronic), stability (controlled/uncon trolled): Stopped smoking in 02/2024 - previously reported Chronic, Smokes cigarettes, has been smoking since about 12, about 5 cigarettes daily currently, previously smoked 1 pack daily, working on cutting back Current medications/effic acy: N/A Previous medication trials: N/A RECOMMENDATIONS: Consider/Continue substance cessation therapy as needed - contact office if desiring medication assisted therapy. Manage co-morbid conditions. Continue monitoring symptoms - report persistent or worsening/concern ing symptoms to the office or go to the ER. For mental health CRISIS, please reach out to [phone] ([place] [facility]icide and [facility]), 911, go to the emergency department, or contact the [facility]/Team. Follow up as scheduled or sooner if necessary. Follow up with PCP and/or other specialists as advised. NEXT STEP: Consider MAT as needed. 08/12/2024 Nicotine dependence (ICD-10 - F17.200) Duration (acute/chronic), stability (controlled/uncon trolled): Stopped smoking in 02/2024 - previously reported Chronic, Smokes cigarettes, has been smoking since about 12, about 5 cigarettes daily currently, previously smoked 1 pack daily, working on cutting back Current medications/effic acy: N/A Previous medication trials: N/A RECOMMENDATIONS: Consider/Continue substance cessation therapy as needed - contact office if desiring medication assisted therapy. Manage co-morbid conditions. Continue monitoring symptoms - report persistent or worsening/concern ing symptoms to the office or go to the ER. For mental health CRISIS, please reach out to [phone] ([place] [facility]), 911, go to the emergency department, or contact the [facility]/Team. Follow up as scheduled or sooner if necessary. Follow up with PCP and/or other specialists as advised. NEXT STEP: Consider MAT as needed. 08/05/2024 Nicotine dependence (ICD-10 - F17.200) Duration (acute/chronic), stability (controlled/uncon trolled): Stopped smoking in 02/2024 - previously reported Chronic, Smokes cigarettes, has been smoking since about 12, about 5 cigarettes daily currently, previously smoked 1 pack daily, working on cutting back Current medications/effic acy: N/A Previous medication trials: N/A RECOMMENDATIONS: Consider/Continue substance cessation therapy as needed - contact office if desiring medication assisted therapy. Manage co-morbid conditions. Continue monitoring symptoms - report persistent or worsening/concern ing symptoms to the office or go to the ER. For mental health CRISIS, please reach out to [phone] ([facility]), 911, go to the emergency department, or contact the [facility]/Team. Follow up as scheduled or sooner if necessary. Follow up with PCP and/or other specialists as advised. NEXT STEP: Consider MAT as needed. 12/22/2024 Sleep behavior disorder, REM (ICD-10 - G47.52) Duration (acute/chronic), stability (controlled/uncon trolled): Chronic, well controlled on current medication regimen Current medications/effic acy: Yes Previous medication trials: gabapentin Current/previous therapies: Patient and currently in couple's therapy, follow up every 2 weeks Examination as documented - see pertinent aspects of office visit documentation. Pertinent diagnostics: LABS MONITORED BY PCP Differential diagnoses: RECOMMENDATIONS: Continue medications as prescribed - educated patient/guardian on adverse effects, risks and benefits, as well as alternative treatments Consume well balanced diet, preferably low in saturated fats (solid at room temperature, such as butter, margarine, Crisco, etc) and low in sodium (<2,000mg per day). Consume plenty of fruits/vegetables , healthy grains/whole grains, unsaturated/healt hy fats (liquid at room temperature, such as olive oil, sunflower seed oil, canola, vegetable, etc.). Exercise regularly - Develop an exercise routine. 30 minutes of moderate exercise (walking at a brisk pace) 5 times per week is recommended. You should work hard enough to cause a sweat but still be able to talk with others while exercising. Exercise improves overall health - improves blood pressure and blood sugar, helps control weight, reduces stress, and improves mood. Practice stress reduction techniques, such as guided imagery, journaling, aromatherapy, acupuncture/acupr essure, deep breathing, etc. Practice healthy sleep hygiene - maintain regular routine, no caffeine after 1PM, no exercise 1-2 hours prior to bedtime, keep bedroom dark and cool, no TV or electronics while in bed. Consider melatonin as needed. Consider cognitive behavioral therapy for insomnia (CBT-I). Consider/Continue therapy. Consider/Continue substance cessation therapy as needed - contact office if desiring medication assisted therapy. Manage co-morbid conditions. Continue monitoring symptoms - report persistent or worsening/concern ing symptoms to the office or go to the ER. For mental health CRISIS, please reach out to [phone] (National Suicide and Crisis Lifeline), 911, go to the emergency department, or contact the [facility]/Team. Follow up as scheduled in 1 week or sooner if necessary. Follow up with PCP and/or other specialists as advised. NEXT STEP: Consider medication adjustments as needed. 08/25/2024 Nicotine dependence (ICD-10 - F17.200) Duration (acute/chronic), stability (controlled/uncon trolled): Stopped smoking in 02/2024 - previously reported Chronic, Smokes cigarettes, has been smoking since about 12, about 5 cigarettes daily currently, previously smoked 1 pack daily, working on cutting back Current medications/effic acy: N/A Previous medication trials: N/A RECOMMENDATIONS: Consider/Continue substance cessation therapy as needed - contact office if desiring medication assisted therapy. Manage co-morbid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
--- OUTSIDE RECORDS SUMMARY | 2025-01-09 18:38 | XMS_ITS | Patient Health Record ---
Author Organization [facility] Address [address] [place] [address] Care Team Providers Care Java Mobile Developer Name Role Phone Vic Randhawa Primary Care Provider [phone] Reason For Referral No Information Medications Medication SIG (Take, Route, Frequency, Duration) Notes Start Date End Date Status Abilify Active Social History Tobacco Use: Social History Observation Description Date Details (start date - stop date) Never Smoker NA - NA Tobacco Use/Smoking Question Answer Notes Are you a nonsmoker Plan Of Treatment No Information Insurance Providers Payer Name Payer Address Payer Phone Subscriber Number Group Number Insured Name Patient Relationship to Insured Coverage Start Date Coverage End Date [employer] [address] [place] [address] [id number] Jerome Beyer Self - patient is the insured Medical (General) History Medical History History ICD Code Bipolar Surgical History Surgery Date(Month/Year)
--- NOTE | 2025-01-09 18:39 | ED.GENADULT ---
HPI - General Adult General Chief complaint: Upper Respiratory Infection Stated complaint: Nausea,Fever Time Seen by Provider: 01/09/25 18:52 History of Present Illness HPI narrative: 29-year-old male presented for complaint of nausea, fatigue, and subjective fever for a few days. Endorses is positive for strep. Takes Tylenol. Denies sob, wheezing, abdominal pain, vomiting, or lethargy. Related Data Home Medications ?Medication ?Instructions ?Recorded ?Confirmed ?Last Taken ?Type buspirone 10 mg tablet 10 mg PO BID 03/05/23 01/14/24 Unknown History lamotrigine 25 mg tablet 50 mg PO BID 12/10/23 01/14/24 Unknown History aripiprazole 15 mg tablet mg 01/09/25 Unknown History cariprazine 1.5 mg capsule mg 01/09/25 Unknown History (Vraylar) guanfacine 1 mg tablet,extended mg PO 01/09/25 Unknown History release 24 hr hydroxyzine pamoate 25 mg capsule mg 01/09/25 Unknown History sertraline 100 mg tablet mg 01/09/25 Unknown History Allergies Allergy/AdvReac Type Severity Reaction Status Date / Time No Known Allergies Allergy Unknown Verified 01/09/25 18:44 Review of Systems Review of Systems: CONSTITUTIONAL: Denies body aches. EYES: Denies visual changes, redness, or discharge. ENT: reports sore throat Denies rhinorrhea, congestion, or otalgia. CARDIOVASCULAR: Denies chest pain, palpitations, or edema. RESPIRATORY: Denies dyspnea. GASTROINTESTINAL: Denies abdominal pain, vomiting, or diarrhea reports nausea SKIN: Denies rash NEUROLOGIC: Denies headache PMFSH Past Medical History Medical History Bipolar disorder Healthy adult male Major depression PTSD (post-traumatic stress disorder) Surgical History Surgical History No significant past surgical history Family History Family History Mother Depression Other Bipolar 1 disorder Heart disease Social History Social History Social History: caffeine use Smoking packs per day: 0.5 Smoking cigarettes per day: 10.0 Smoking status: Current every day smoker Tobacco type: cigarettes Alcohol intake: current Substance use: current Substance use type: marijuana Other substance usage details: former meth user Occupation/Education: occupation 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 EYES: conjunctivae clear ENT: Mucous membranes moist. TMs pearly sellers with normal light reflex bilaterally; no tragal tenderness. Oropharynx erythematous without lesions. Tonsils enlarged 2+ with exudate. No drooling, no hoarseness, no trismus, uvula midline. No tripod positioning, hot potato voice, or soft palate swelling. NECK: Supple. No lymphadenopathy CHEST: Clear to auscultation, breath sounds equal. HEART: Regular rate and rhythm. No murmur heard. SKIN: Warm, dry, no rash. NEURO: Alert and oriented x3. Course Course Emergency Course: Patient is aware of diagnosis, understands and agrees to treatment plan. Anticipatory guidance given. Patient agrees to follow-up as directed and is aware of reasons to seek care at the emergency department. Portions of this record may have been created with voice recognition software Level of Care: Express Care Visit Vital Signs Vital signs: Vital Signs Temperature 98 F 01/09/25 18:40 Pulse Rate 77 01/09/25 18:40 Respiratory Rate 18 01/09/25 18:40 Blood Pressure 122/79 01/09/25 18:40 Pulse Oximetry 97 01/09/25 18:40 Oxygen Delivery Room Air 01/09/25 18:40 Temperature 98 F 01/09/25 18:40 Pulse Rate 77 01/09/25 18:40 Respiratory Rate 18 01/09/25 18:40 Blood Pressure 122/79 01/09/25 18:40 Pulse Oximetry 97 01/09/25 18:40 Oxygen Delivery Room Air 01/09/25 18:40 Medical Decision Making MDM Narrative Medical decision making narrative: Will treat for strep based on PE, CC and known exposure. Discussed physical exam findings. Advised supportive measures and signs/symptoms to go to the ER. Pt is appropriate for outpt treatment and f/u. Differential Diagnosis Differential Diagnosis: Influenza, covid, sinusitis, OM, strep pharyngitis, URI, viral infection, gastroenteritis Vital Signs Vital Signs: Vital Signs Temperature 98 F 01/09/25 18:40 Pulse Rate 77 01/09/25 18:40 Respiratory Rate 18 01/09/25 18:40 Blood Pressure 122/79 01/09/25 18:40 Pulse Oximetry 97 01/09/25 18:40 Oxygen Delivery Room Air 01/09/25 18:40 Temperature 98 F 01/09/25 18:40 Pulse Rate 77 01/09/25 18:40 Respiratory Rate 18 01/09/25 18:40 Blood Pressure 122/79 01/09/25 18:40 Pulse Oximetry 97 01/09/25 18:40 Oxygen Delivery Room Air 01/09/25 18:40 Discharge Plan Discharge Clinical Impression: Pharyngitis Patient Disposition: Home Condition: Stable Instructions: Antibiotic Form, Strep Throat (ED) Additional Instructions: - Take the antibiotic as directed. Fever and sore throat typically resolve within one to three days. You are considered contagious until 12 to 24 hours of antibiotic therapy, provided you are fever free and otherwise well. -Eat and drink things that are easy to swallow, like soft foods, cool liquids, tea with honey, or popsicles . -Salt water gargles and/or may use topical anesthetic ( Chloraseptic spray) or lozenges to relieve dryness or throat pain -Alternate Tylenol and ibuprofen as needed for pain and fever as directed. -Frequent hand washing or hand electronics engineering technologist is one of the best ways to prevent spread of infection. Throw away the toothbrush after 24hours of antibiotic. -Follow up with primary care provider in 2-3 days if condition is not improving -Go to the ER if you have trouble breathing, cannot drink enough fluids, have muffled voice or drooling, difficulty opening your mouth, or severe swelling. Patient Language: Azeri Prescriptions: New amoxicillin 500 mg tablet 1,000 mg PO DAILY 10 Days Qty: 20 0RF No Action sertraline 100 mg tablet hydroxyzine pamoate 25 mg capsule aripiprazole 15 mg tablet guanfacine 1 mg tablet extended release 24 hr PO Vraylar 1.5 mg capsule buspirone 10 mg tablet 10 mg PO BID albuterol sulfate 90 mcg/actuation HFA aerosol inhaler 2 puff inhalation Q4-6H PRN (Reason: shortness of breath or wheezing) 30 Days Qty: 8.5 0RF lamotrigine 25 mg tablet 50 mg PO BID Follow-up/Referrals: UNKNOWN,DOCTOR [Primary Care Provider] Time of Disposition: 18:56
[2025-01-09 18:40] VITALS: BP 122/79; PULSE 77; RESP 18; TEMP 36.6; O2SAT 97
--- OUTSIDE RECORDS SUMMARY | 2025-01-09 18:40 | XMS_ITS | Data Portability ---
Author Organization [place] - [facility] [employer], Main Office Address [address] [place] [address] Care Team Providers Care Plastics Repairer Name Role Phone SANJAY OLIVO Primary Care Provider SANJAY OLIVO Referring Provider Assessment Encounter Date Assessment Date Assessment LastModified by Organization Details LastModified Time 12/04/2022 12/04/2022 27-year-old patient presents today with right knee pain that has been going on for the past year. He states that 11 years ago he had a football injury where his knee was twisted during a tackle. At that time he did not have health insurance is not able to have imaging done, but was told by someone that he may have torn his ACL. He has had issues with the knee since then but it has gotten worse over the last year. He experiences pain with squatting down, catching and locking, popping, swelling, and giving out. For treatment he tries wearing a brace, taking ibuprofen, and was recently prescribed tramadol and diclofenac by his primary care physician. 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 Review of systems per patient questionnaire Imaging: X-rays reviewed of the right knee show no acute bony abnormality, no fracture. Preserved joint space throughout. Physical exam: Nonantalgic gait. No effusion. No tenderness with palpation. Range of motion 0-150 without crepitus. Negative Isaiah's. Stable Elbert's with firm endpoint. Stable posterior drawer, varus and valgus stress. Normal patellar mobility. We will start with a course of physical therapy to help stretch and strengthen his knee. He states that the prescription meds for tramadol and diclofenac or only enough for 1 week. We will prescribe him meloxicam for anti-inflammator y therapy. We will see him back in 4-6 weeks to check his progress. [email or web address] Not available 12/04/2022 22:10:56 Plan of Treatment Reminders Order Date Submit Date Provider Last Modified By Organization Details Last Modified Time Details Appointments None recorded. Lab None recorded. Referral physical therapist referral - [facility] 2022 023 [email or web address], [address], [place], [address], 07:09:42 Procedures None recorded. Surgeries None recorded. Imaging XR, knee, 3 view 2022 023 [email or web address] [facility], [address], [place], [address], 22:05:59 Medication Orders Mobic 15 mg tablet 2022 023 [email or web address], [address], [place], [address], 22:11:22 Patient TargetsNo targets recorded. Patient InstructionsNo instructions recorded. Reason for Referral Physical Therapist Referral for Pain of right knee joint [facility] Referring Physician: Aury Downs, Orthopedic Surgery, Encounter Date: 12/04/2022 Results Created Date Observation Date Name Description Value Unit Range Abnormal Flag Note LastModifiedBy Organization Detail LastModifiedTime 12/05/19 XR, knee, 3 view No observ ation record ed. [email or web address] [facility] [place] [address], [place], [address], 12/04/2022 22:05:57 Result Notes None recorded. Problems Name Problem SNOMED Code Status Onset Date Resolution Date Notes Provider Name and Address Organization Details Recorded Time Pain of right knee joint 882403766813460 Active 2022 Carolina Vera , BALDO L null, [place] - [facility] 11:32:10 Notes:Some problems listed i n Document: #[id number] could not be added to this patient's chart. Please review this document and add these problems to the patient's chart manually as needed. Problem Notes None recorded. Medical Equipment None Reported. Allergies No known drug allergies Medications Name Sig Start Date Stop Date Status Note LastModified by Organization Details LastModified Time buspirone 5 mg tablet TAKE 1 TABLET BY MOUTH TWICE DAILY active Not Available Not Available No t Available cetirizine 10 mg tablet TAKE ONE TABLET BY MOUTH ONCE DAILY NEEDED. 12/04 completed Not Available Not Available Not Available meloxicam 15 mg tablet Take by oral route for 30 days. 2022 active Not Available Not Available Not Avai lable acyclovir 400 mg tablet active Not Available Not Available Not Available tramadol 50 mg tablet TAKE 1 TABLET BY MOUTH THREE TIMES DAILY active Not Available Not Available No t Available triamcinolo ne acetonide 0.1 % topical cream APPLY A THIN LAYER TO THE AFFECTED AREA(S) ON LEFT LEG TWICE DAILY active Not Available Not Available No t Available lamotrigine 25 mg tablet TAKE 2 TABLETS BY MOUTH ONCE DAILY active Not Available Not Available No t Available famotidine 20 mg tablet TAKE 1 TABLET BY MOUTH EVERY 12 HOURS FOR 10 DAYS 12/04 completed Not Available Not Available Not Available omeprazole 20 mg capsule,del ayed release 12/04 completed Not Available Not Available Not Available diclofenac sodium 50 mg tablet,nate yed release TAKE 1 TABLET BY MOUTH TWICE DAILY WITH MEALS active Not Available Not Available No t Available gabapentin 100 mg capsule TAKE 1 CAPSULE BY MOUTH ONCE DAILY IN THE EVENING active Not Available Not Available No t Available methylpredn isolone 4 mg tablets in a dose pack TAKE BY MOUTH DIRECTED ON INSIDE OF PACKAGE 12/04 completed Not Available Not Available Not Available aripiprazol e 10 mg tablet active Not Available Not Available Not Available Vitals Date Recorded Body height Body mass index (BMI) Body weight Provider Name and Address Organization Details Last Updated DateTime 12/04/2022 172.72 cm 36.5 kg/m2 578494.17 eboni Vera, BALDO L [place] [email or web address] 12/04/2022 11:31:33 Social History Question Answer Notes LastModified by Organizat ion Details LastModified Time Tobacco Smoking Status Unknown If Ever Smoked VICKI Palacios null, [place] - [facility] 12/04/2022 11:34:42 What Was The Date Of Your Most Recent Tobacco Screening? 12/04/2022 [email or web address] Information not available 12/04/2022 Sex: Unknown Functional Status Question Answer Note LastModified by Organizat ion Details LastModified Time What is your level of alcohol consumption? Occasional Information not available 12/04/2022 Mental Status None recorded. Family History Nothing Reported. Medical History No medical history recorded. Past Encounters Encounter ID Performer Location Encounter Start Date Encounter Closed Date Diagnosis/Indication Diagnosis SNOMED-CT Code Diagnosis ICD10 Code Diagnosis IMO Codes Diagnosis Note [id number] Brian Oneal MD [facility] [place] [address] [place] [address] 12/04/2022 11:21:43 12/04/2022 11:59:53 Pain of right knee joint [id number] 94313 M25.561 Health Concerns Section Related Observation LastModified by Organization Detai ls LastModified Time None Recorded Concern Status LastModified by Organization Details LastModified Time None Recorded Advance Directives Directive None Recorded Payers Insurance Date Sequence Insurance Name Policy Number Policy Burns Covered Member ID Burns Member ID Guarantor Name 02/14/2023 1 [facility] (MEDICAID HMO) [id number] Jerome Beyer [id number] Jerome Beyer 02/14/2023 [facility] Jerome Beyer SELF SELF Jerome Beyer
== END 2025-01-09 18:58 | disposition home or self-care (01) ==
PROVIDERS: Emergency Provider Nurse Practitioner Family
DX: J02.9 Acute pharyngitis, unspecified (principal); F17.210 Nicotine dependence, cigarettes, uncomplicated; F12.90 Cannabis use, unspecified, uncomplicated; F31.9 Bipolar disorder, unspecified
CPT/HCPCS: 99213; G0463